=== PATIENT | female | born 1985 ===

== ENCOUNTER 2018-03-03 10:27 | Emergency (ER) | payer MEDICAID ==
[2018-03-03 10:32] VITALS: BMI 20.5
--- NOTE | 2018-03-03 11:14 | ED PDOC ---
Lower Extremity Pain/Injury Time Seen by Provider: 03/03/18 10:38 Chief Complaint (Nursing): Lower Extremity Problem/Injury Chief Complaint (Provider): Foot pain History Per: Patient Additional Complaint(s): 32 yo female, PMH includes, HIV, HTN, Systolic CHF, Migraine, Depression, presents to ED for evaluation of right foot pain. Pt reports that she walked into a box and stubbed her right 2nd toe. Pain into foot upon ambulation. No abrasion/laceration noted. No medications taken for pain thus far. Past Medical History Reviewed: Nursing Documentation, Vital Signs Vital Signs: Last Vital Signs Temp 98.6 F 03/03/18 10:31 Pulse 85 03/03/18 10:31 Resp 16 03/03/18 10:31 BP 171/103 H 03/03/18 10:31 Pulse Ox 99 03/03/18 10:31 - Medical History PMH: Anemia, CHF, Depression, HIV, HTN, Pneumonia, End Stage Renal Disease ( Dialysis M/W/F), Chronic Kidney Disease, Sexually Transmitted Disease Denies: Schizophrenia - Surgical History Surgical History: Denies: CABG - Family History Family History: States: Unknown Family Hx, Hypertension - Living Arrangements Living Arrangements: With Family - Social History Current smoker - smoking cessation education provided: No - Home Medications Home Medications: Ambulatory Orders Medication Instructions Recorded Darunavir [Prezista] 800 mg PO DAILY 08/11/16 amLODIPine [Norvasc] 10 mg PO DAILY 08/17/16 Dolutegravir Sodium [Tivicay] 50 mg PO DAILY 10/05/16 Losartan [Cozaar] 100 mg PO DAILY 10/05/16 Ritonavir [Norvir] 100 mg PO DAILY 10/05/16 Omeprazole 20 mg PO DAILY #30 capsule. 07/03/17 Albuterol HFA [Ventolin HFA 90 2 puff IH Q6H PRN 07/10/17 mcg/actuation (8 g)] Atovaquone [Mepron] 10 ml PO DAILY 07/10/17 Ferrous Sulfate [Ferrous Sulfate] 325 mg PO BID 07/10/17 Ketoconazole 2% Shampoo [Nizoral] 1 appl TOP MOFR 07/10/17 Azithromycin [Zithromax] 1,200 mg PO QWK #4 tab 07/18/17 Cefuroxime Axetil [Cefuroxime] 250 mg PO DAILY #7 tablet 07/18/17 valACYclovir [Valtrex] 500 mg PO DAILY #10 tab 07/18/17 Ibuprofen [Motrin] 600 mg PO Q6 #20 tab 03/03/18 - Allergies Allergies/Adverse Reactions: Allergies Allergy/AdvReac Type Severity Reaction Status Date / Time No Known Allergies Allergy Verified 07/03/17 13:53 Review of Systems ROS Statement: Except As Marked, All Systems Reviewed And Found Negative Musculoskeletal: Positive for: Foot Pain Physical Exam - Reviewed Nursing Documentation Reviewed: Yes Vital Signs Reviewed: Yes - Physical Exam Appears: Positive for: Well, Non-toxic, No Acute Distress Head Exam: Positive for: ATRAUMATIC, NORMAL INSPECTION, NORMOCEPHALIC Skin: Positive for: Normal Color, Warm, DRY Eye Exam: Positive for: EOMI, Normal appearance, PERRL ENT: Positive for: Normal ENT Inspection Neck: Positive for: Normal, Painless ROM Cardiovascular/Chest: Positive for: Regular Rate, Rhythm Respiratory: Positive for: CNT, Normal Breath Sounds Gastrointestinal/Abdominal: Positive for: Normal Exam, Soft Back: Positive for: Normal Inspection Extremity: Positive for: Normal ROM, Tenderness (to base of 2nd digit). Negative for: Deformity, Swelling Neurologic/Psych: Positive for: Alert, Oriented - ECG O2 Sat by Pulse Oximetry: 99 Medical Decision Making Medical Decision Making: medicated with Motrin PO XR: NAD, as read by KARMEN Pt placed in surgical marilynn for comfort. RICE therapy advised and podiatry referral made Disposition - Clinical Impression Clinical Impression: Foot pain - Disposition Disposition: Routine/Home Disposition Time: 13:00 Condition: STABLE Prescriptions: Ibuprofen [Motrin] 600 mg PO Q6 #20 tab Instructions: Contusion (DC) Forms: [employer] (Divehi)
--- NOTE | 2018-03-03 11:42 | RAD ---
Date of service: 03/03/2018 PROCEDURE: Right Foot Radiographs. HISTORY: paind, crush injury COMPARISON: None. FINDINGS: BONES: No acute fracture. JOINTS: Normal. SOFT TISSUES: Normal. OTHER FINDINGS: None. IMPRESSION: No demonstrated fracture or dislocation.
--- NOTE | 2018-03-03 11:42 | RAD ---
Date of service: 03/03/2018 PROCEDURE: Left Foot Radiographs. HISTORY: pain /swelling. dropped box on her foot COMPARISON: None. FINDINGS: BONES: No acute fracture. JOINTS: Normal. SOFT TISSUES: Normal. OTHER FINDINGS: None. IMPRESSION: No demonstrated fracture or dislocation.
[2018-03-03 12:55] VITALS: BP 128/76; PULSE 87; RESP 19; TEMP 97
[2018-03-03 13:00] VITALS: O2SAT 99
== END 2018-03-03 12:56 | disposition home or self-care (01) ==
LOC: H.ER 10:27
DX: S99.921A Unspecified injury of right foot, initial encounter (principal); W22.09XA Striking against other stationary object, initial encounter

== ENCOUNTER 2018-10-02 16:44 | Observation (INO) | payer MEDICAID ==
[2018-10-02 16:44] VITALS: BMI 20.5
[2018-10-02] MEDS ORDERED: Sodium Chloride 0.9% 1,000 ML IV ONE (18:59)
--- NOTE | 2018-10-02 19:00 | ED PDOC ---
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 Her last dialysis date was yesterday) Past Medical History Reviewed: Historical Data, Nursing Documentation, Vital Signs Vital Signs: Last Vital Signs Temp 98.7 F 10/02/18 17:10 Pulse 106 H 10/02/18 17:10 Resp 16 10/02/18 17:10 BP 185/109 H 10/02/18 17:10 Pulse Ox 100 10/02/18 17:10 - Medical History PMH: Anemia, CHF, Depression, HIV, HTN, Pneumonia, End Stage Renal Disease (Dialysis M/W/F), Chronic Kidney Disease, Sexually Transmitted Disease Denies: Schizophrenia - Surgical History Surgical History: Denies: CABG - Family History Family History: States: Unknown Family Hx, Hypertension - Home Medications Home Medications: Ambulatory Orders Medication Instructions Recorded Darunavir [Prezista] 800 mg PO DAILY 08/11/16 amLODIPine [Norvasc] 10 mg PO DAILY 08/17/16 Dolutegravir Sodium [Tivicay] 50 mg PO DAILY 10/05/16 Losartan [Cozaar] 100 mg PO DAILY 10/05/16 Ritonavir [Norvir] 100 mg PO DAILY 10/05/16 Omeprazole 20 mg PO DAILY #30 capsule. 07/03/17 Albuterol HFA [Ventolin HFA 90 2 puff IH Q6H PRN 07/10/17 mcg/actuation (8 g)] Atovaquone [Mepron] 10 ml PO DAILY 07/10/17 Ferrous Sulfate 325 mg PO BID 07/10/17 Ketoconazole 2% Shampoo [Nizoral] 1 appl TOP MOFR 07/10/17 Azithromycin [Zithromax] 1,200 mg PO QWK #4 tab 07/18/17 Cefuroxime Axetil [Cefuroxime] 250 mg PO DAILY #7 tablet 07/18/17 valACYclovir [Valtrex] 500 mg PO DAILY #10 tab 07/18/17 Ibuprofen [Motrin] 600 mg PO Q6 #20 tab 03/03/18 - Allergies Allergies/Adverse Reactions: Allergies Allergy/AdvReac Type Severity Reaction Status Date / Time No Known Allergies Allergy Verified 10/02/18 17:10 Review of Systems ROS Statement: Except As Marked, All Systems Reviewed And Found Negative ENT: Positive for: Ear Pain Neurological: Positive for: Headache Physical Exam - Reviewed Nursing Documentation Reviewed: Yes Vital Signs Reviewed: Yes - Physical Exam Appears: Positive for: Well, Uncomfortable Head Exam: Positive for: ATRAUMATIC, NORMAL INSPECTION ENT: Positive for: Other. Negative for: Normal ENT Inspection (Pt right mastoid is tender to palpation and the patient has an open rash on her right ear that she indicates is chronic) Neck: Positive for: Normal, Supple. Negative for: Limited ROM Cardiovascular/Chest: Positive for: Regular Rate, Rhythm Respiratory: Positive for: Normal Breath Sounds Pulses-Carotid (L): 2+ Pulses-Carotid (R): 2+ Pulses-Radial (L): 2+ Pulses-Radial (R): 2+ - Laboratory Results Result Diagrams: 10/02/18 19:51 10/02/18 19:51 - ECG O2 Sat by Pulse Oximetry: 100 Medical Decision Making Medical Decision Making: R/O Mastoiditis CBC CMP CT ICA without contrast ordered due to ESRF Percocet 5mg given for pain manament and effective 2000 - Pt care discussed and signed over to Jerica Disposition - Clinical Impression Clinical Impression: Mastoid pain - Patient ED Disposition Is Patient to be Admitted: Transfer of Care - Disposition Disposition: Transfer of Care Disposition Time: 20:15 Condition: STABLE Forms: [employer] (Lao)
[2018-10-02] MEDS ORDERED: Oxycodone/Acetaminophen 5/325 mg Tab PO STA (19:02)
[2018-10-02] MEDS ORDERED: Oxycodone/Acetaminophen 5/325 mg Tab ONE (19:15)
[2018-10-02 19:55] LABS: BASO % 0.7 % (0.0-2.0); EOS % 1.7 % (0.0-4.0); HEMOGLOBIN 9.8 g/dL (12.0-16.0); LYMPH # 0.7 K/uL (1.0-4.3); LYMPH % 31.1 % (20.0-40.0); MEAN CELL VOLUME 90.5 fl (81.0-99.0); MEAN CORPUSCULAR HGB CONC 33.1 g/dL (33.0-37.0); MEAN PLATELET VOLUME 8.6 fl (7.2-11.7); MONO # 0.2 K/uL (0.0-0.8); MONO % 9.9 % (0.0-10.0); NEUT # 1.3 K/uL (1.8-7.0); NEUT % 56.6 % (50.0-75.0); NRBC % 0.1 % (0.0-0.0); RBC 3.29 Mil/uL (3.80-5.20); RED CELL DISTRIBUTION WIDTH 18.4 % (11.5-14.5); WHITE BLOOD COUNT 2.3 K/uL (4.8-10.8)
[2018-10-02 20:09] LABS: ALB/GLOB RATIO 0.7 (1.0-2.1); ALBUMIN 3.3 g/dL (3.5-5.0); CALCIUM 9.7 mg/dL (8.4-10.2)
[2018-10-02] MEDS ORDERED: Oxycodone/Acetaminophen 5/325 mg Tab PO ONE (20:55)
--- NOTE | 2018-10-02 21:15 | ED PDOC ---
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 Associated headache x 3 days. HD MWF CLINICAL INFORMATION AVAILABLE/CLINICAL HISTORY: Right ear pain. TECHNIQUE: Helically acquired noncontrast images were obtained through the temporal bones in axial plane. Coronal, sagittal and 3-D images when reviewed on a separate workstation and selected images are saved in PACS. COMPARISON: None available. FINDINGS: Evaluation of the right temporal bone demonstrates circumferential soft tissue wall thickening of the external auditory canal with resultant luminal narrowing. No erosions are seen along the bony west of the external auditory canal. There are inflammatory changes in the surrounding soft tissues including the periauricular region. The right tympanic membrane is mildly thickened and retracted. There is partial opacification of the right middle ear cavity, including Prussak's space. The scutum is sharp. The ossicles demonstrate no abnormal erosion and are normal in position. The sinus tympani and facial nerve recess are opacified. The inner ear cavity demonstrates a normal partitioning of the cochlea and vestibular apparatus. The facial nerve canal is normal. The internal auditory canal is unremarkable in shape and configuration. The vestibular and cochlear aqueducts are normal in appearance. The carotid and jugular bony canals are unremarkable. The osseous covering of the superior and lateral semicircular canals, cochlear promontory, facial nerve canal, and the tegmen tympani are intact.There is opacification of several posterior mastoid air cells as well as trace fluid in the right mastoid tip. Remainder of the mastoid air cells are well aerated. There are no bony erosions or trabecular breakdown to suggest coalescence. The adjacent sigmoid plate is intact. Evaluation of the left temporal bone demonstrates a normal appearance to the left external auditory canal. The tympanic membrane is unremarkable. The left middle ear cavity is well aerated and the ossicles demonstrate no abnormal erosion and are normal in position. The sinus tympani and facial nerve recess appear normal. The inner ear cavity demonstrates a normal partitioning of the cochlea and vestibular apparatus. The facial nerve canal is normal. The internal auditory canal is unremarkable in shape and configuration. The vestibular and cochlear aqueducts are normal in appearance. The carotid and jugular bony canals are unremarkable. There is mild bony thinning of the osseous covering of the left superior semicircular canal without evidence for kaylah dehiscence. The osseous covering of the lateral semicircular canal, cochlear promontory, facial nerve canal, and the tegmen tympani are intact. Trace fluid is noted within the left mastoid tip. The visualized portions of the intracranial and intraorbital compartments demonstrate no abnormality. The visualized portion of the nasopharynx is unremarkable. Polyploid mucosal thickening is noted within both maxillary sinuses. There is trace mucosal thickening in the right sphenoid sinus, anterior ethmoid air cells, and right greater than left frontal recesses. The visualized right parotid gland appears asymmetrically enlarged when compared to the left. Several punctate calcifications are seen within both parotid glands. There is no acute fracture or dislocation. The TMJs are within normal limits. IMPRESSION: 1. Opacification of several right-sided mastoid air cells and partial opacification of the right middle ear cavity. Findings are suggestive of otomastoiditis. No associated bony erosions or evidence for coalescence. 2. Circumferential wall thickening of the right external auditory canal with resultant luminal narrowing. Inflammatory changes are seen in the adjacent periauricular soft tissues. This may represent otitis externa in the appropriate clinical setting. 3. Asymmetric enlargement of the right parotid gland may be reactive in nature secondary to adjacent inflammatory changes. Punctate sialoliths are present within both parotid glands. 4. Trace fluid within the left mastoid tip. 5. Pansinus mucosal disease Case discussed with Dr. León, ENT on-call; recommends admission for IV abx with ID consult, MRI of mastoids, bone scan of mastoids. Case discussed with Dr. Rogers, recommends stat doses of IV Tobramycin 80mg, IV Meropenem 500mg, IV Zosyn 2.25G, IV Vanco 1G Case discussed with Dr. Osorio, Hospitalist on-call for admission Disposition - Clinical Impression Clinical Impression: Malignant otitis externa, ESRD (end stage renal disease) - POA Present On Arrival: None - Disposition Disposition: Admitted as In-Patient Disposition Time: 23:00 Condition: FAIR
[2018-10-02] MEDS ORDERED: Meropenem 500 MG in Sodium Chloride 0.9% 100 ML IVPB STA (23:05)
[2018-10-02] MEDS ORDERED: Vancomycin 1 g Inj ONE (23:33)
--- NOTE | 2018-10-03 01:33 | CP.PCM.HP ---
<Alejandro Godinez - Last Filed: 10/03/18 05:12> History of Present Illness - History of Present Illness History of Present Illness: Pt is a 33 y/o female with hx of Dilated cardiomyopathy, pulmonary HTN, HIV, Dilated Cardiomyopathy, ESRD on HD (MWF), presents with ear pain and headache. States 1 week ago she noticed a painful rash on her ear that began draining clear yellow fluid. Than 3 days ago she started have throbbing headaches. Had 1 episodes of vomiting this morning. Denies fever/chills, blurry vision, neck rigidity, cough, cp, sob. Last received dialysis yesterday. PMD: Akira Leiva PMHX: HIV (compliant with HAART therapy,last CD4 215, viral load 100 on 08/29/18), Dilated Cardiomyopathy (Last EF 25%), HTN, ESRD on HD (MWF), Pancytopenia Medications: Dolutegravir, Prezista, Norvir, atovaquone, norvasc 10mg, coreg 25 mg, Irbesartan 300mg, Valacylovir 1gm daily, Feosol, Wellbutrin 150 ER, Sertraline 100mg 1.5 tab daily, Albuterol PRN SHx: AVF Left arm, fat pad biopsy-right flank 03/30/2017 - negative for amyloidosis, US guided liver biopsy 10/20/2016, Right hepatic lobe biopsy 10/20/2016, LEEP and vulvar biopsy 04/2015, Right arm AVF fistula: 11/2014. Family Hx: Father: DM, HTN, 2 children, healthy, siblings healthy. Social Hx: denies tobacco, etoh, illicit drug use Present on Admission - Present on Admission Any Indicators Present on Admission: No Past Patient History - Infectious Disease Hx of Infectious Diseases: None - Tetanus Immunizations Tetanus Immunization: Up to Date - Past Medical History & Family History Past Medical History?: Yes - Past Social History Smoking Status: Never Smoked - CARDIAC Hx Congestive Heart Failure: Yes Hx Hypertension: Yes - PULMONARY Hx Pneumonia: Yes - NEUROLOGICAL Hx Neurological Disorder: No - HEENT Hx HEENT Problems: No - RENAL Hx Chronic Kidney Disease: Yes - ENDOCRINE/METABOLIC Hx Endocrine Disorders: No - HEMATOLOGICAL/ONCOLOGICAL Hx Anemia: Yes Hx Human Immunodeficiency Virus (HIV): Yes - INTEGUMENTARY Hx Dermatological Problems: No - MUSCULOSKELETAL/RHEUMATOLOGICAL Hx Falls: No - GASTROINTESTINAL Hx Gastrointestinal Disorders: No - GENITOURINARY/GYNECOLOGICAL Hx Sexually Transmitted Disorders: Yes - PSYCHIATRIC Hx Depression: Yes Hx Schizophrenia: No - SURGICAL HISTORY Hx Coronary Artery Bypass Graft: No - ANESTHESIA Hx Anesthesia: Yes Hx Anesthesia Reactions: No Hx Malignant Hyperthermia: No Meds Allergies/Adverse Reactions: Allergies Allergy/AdvReac Type Severity Reaction Status Date / Time No Known Allergies Allergy Verified 10/02/18 17:10 Physical Exam - Constitutional Appears: No Acute Distress, Older Than Stated Age - Eye Exam Eye Exam: EOMI, Normal appearance, PERRL. absent: Conjunctival injection, Nystagmus, Periorbital swelling, Periorbital tenderness, Scleral icterus - ENT Exam ENT Exam: Mucous Membranes Moist Additional comments: Right ear- Scattered erythematous and edematous areas along the pinna, external ear canal yellow crusting lesions, no visible drainage, exquisitely tender to palpation marked in auditory canal and regions surrounding ear extending from mastoid to mandibular. No vesicular lesions. - Neck Exam Neck exam: Positive for: Full Rom. Negative for: Meningismus - Respiratory Exam Respiratory Exam: Clear to Auscultation Bilateral. absent: Rales, Wheezes - Cardiovascular Exam Cardiovascular Exam: REGULAR RHYTHM, +S1, +S2. absent: Systolic Murmur - GI/Abdominal Exam GI & Abdominal Exam: Normal Bowel Sounds, Soft. absent: Tenderness - Extremities Exam Extremities exam: Positive for: normal inspection - Back Exam Back exam: NORMAL INSPECTION - Neurological Exam Neurological exam: Alert, Oriented x3 - Psychiatric Exam Psychiatric exam: Normal Affect Results - Vital Signs Recent Vital Signs: Last Vital Signs Temp 98.4 F 10/02/18 22:49 Pulse 106 H 10/02/18 22:49 Resp 16 10/02/18 22:49 BP 146/105 H 10/02/18 22:49 Pulse Ox 100 10/02/18 23:44 - Labs Result Diagrams: 10/02/18 19:51 10/02/18 19:51 Labs: Laboratory Results - last 24 hr 10/02/18 10/02/18 19:51 19:51 WBC 2.3 L RBC 3.29 L Hgb 9.8 L D Hct 29.7 L MCV 90.5 D MCH 30.0 MCHC 33.1 RDW 18.4 H Plt Count 65 L D MPV 8.6 Neut % (Auto) 56.6 Lymph % (Auto) 31.1 Kleberg % (Auto) 9.9 Eos % (Auto) 1.7 Baso % (Auto) 0.7 Neut # (Auto) 1.3 L Lymph # (Auto) 0.7 L Kleberg # (Auto) 0.2 Eos # (Auto) 0.0 Baso # (Auto) 0.0 Sodium 141 Potassium 5.0 Chloride 102 Carbon Dioxide 27 Anion Gap 17 BUN 33 H Creatinine 6.5 H Est GFR ( Amer) 9 Est GFR (Non-Af Amer) 7 Random Glucose 85 Calcium 9.7 Total Bilirubin 0.6 AST 43 H D ALT 52 D Alkaline Phosphatase 97 Total Protein 8.1 Albumin 3.3 L D Globulin 4.8 H Albumin/Globulin Ratio 0.7 L Assessment & Plan - Assessment and Plan (Free Text) Assessment: Pt is a 33 y/o female with hx of Dilated cardiomyopathy, pulmonary HTN, Chronic Pancytopenia, HIV, HTN, ESRD on HD (MWF), presents with ear pain associated with yellow drainage and headache. #Right Ear Pain & Drainage - Facial Bone CT: Opacification of right mastoid air cells and middle ear cavity suggestive of Otomastoiditis. Circumferential wall thickening of external ear canal..may represent Otitis External - Need to rule out malignant Otitis Externa - IAC w/ contrast MRI ordered - Afebrile, Tachycardic, Leukopenic 2.3 - ENT consulted (Dr. León): recommended MRI Mastoi, Bone Scan Mastoid - ID Consulted (Dr. Rogers): Recommended STAT doses of Vanco, Zosyn, Merrem, And Tobramycin - Will c/w Zosyn and Merrem for dual pseudomonas coverage and await further recommendations from ID regarding additional abx coverage - Wound Care for external ear canal - F/U Bcx, Wcx, ESR, CBC, Vanco random at 24 hrs after first dose #ESRD on HD MWF -HD MWF -Nephro logy consulted, Dr. Henley #HIV - compliant with HAART therapy - Last CD4 215, viral load 100 on 08/29/18 - Was getting pcp ppx with Atovaquinone bu latest viral load shows she may not need it - Follows Dr. Morales in [facility] #Cardiomyopathy, dilated, nonischemic, stable -Euvolemic on exam, no jvd, lungs clear, no LE Edema, POSITIVE systolic murmur (chronic) -Sees Dr. Cline OP -last echo (03/23), EF 25% -Monitor volume status daily, avoid fluid overload #Pancytopenia, chronic -Stable at 2.3 on admission (baseline ranges form 2-3) -Likely 2/2 to HIV -Evaluated by Director Heart,Dr. Larsen in prior admission- Pancytopenia likely 2/2 to HIV -F/U CBC #Transaminitits, chronic, mild -Hepatomegaly noted on repeat abdominal CT (07/13) -Likely secondary to Congestive hepatopathy -Hepatitis serology negative -Avoid hepatotoxic meds #HTN -Normotensive -C/W Norvasc and Ibesartan (NF,will start equivocal med) -Continue to monitor #DVT prophylaxis -Heparin #Diet -Renal <Merrill Erazo - Last Filed: 10/03/18 06:52> Results - Vital Signs Recent Vital Signs: Last Vital Signs Temp 97.8 F 10/03/18 06:20 Pulse 92 H 10/03/18 06:20 Resp 19 10/03/18 06:20 BP 176/98 H 10/03/18 06:20 Pulse Ox 98 10/03/18 06:20 - Labs Result Diagrams: 10/03/18 05:30 10/03/18 05:30 Labs: Laboratory Results - last 24 hr 10/02/18 10/02/18 10/03/18 19:51 19:51 05:30 WBC 2.3 L 2.0 L* RBC 3.29 L 3.04 L Hgb 9.8 L D 9.1 L Hct 29.7 L 28.0 L MCV 90.5 D 92.2 MCH 30.0 30.0 MCHC 33.1 32.5 L RDW 18.4 H 18.1 H Plt Count 65 L D 65 L MPV 8.6 Neut % (Auto) 56.6 Lymph % (Auto) 31.1 Kleberg % (Auto) 9.9 Eos % (Auto) 1.7 Baso % (Auto) 0.7 Neut # (Auto) 1.3 L Lymph # (Auto) 0.7 L Kleberg # (Auto) 0.2 Eos # (Auto) 0.0 Baso # (Auto) 0.0 Sodium 141 Potassium 5.0 Chloride 102 Carbon Dioxide 27 Anion Gap 17 BUN 33 H Creatinine 6.5 H Est GFR ( Amer) 9 Est GFR (Non-Af Amer) 7 Random Glucose 85 Lactic Acid Calcium 9.7 Phosphorus Magnesium Total Bilirubin 0.6 AST 43 H D ALT 52 D Alkaline Phosphatase 97 Total Protein 8.1 Albumin 3.3 L D Globulin 4.8 H Albumin/Globulin Ratio 0.7 L 10/03/18 10/03/18 05:30 05:30 WBC RBC Hgb Hct MCV MCH MCHC RDW Plt Count MPV Neut % (Auto) Lymph % (Auto) Kleberg % (Auto) Eos % (Auto) Baso % (Auto) Neut # (Auto) Lymph # (Auto) Kleberg # (Auto) Eos # (Auto) Baso # (Auto) Sodium 141 Potassium 5.5 H Chloride 101 Carbon Dioxide 27 Anion Gap 19 BUN 34 H Creatinine 7.4 H* Est GFR ( Amer) 8 Est GFR (Non-Af Amer) 6 Random Glucose 78 Lactic Acid 0.6 L Calcium 9.3 Phosphorus 6.0 H Magnesium 2.3 Total Bilirubin 0.7 AST 38 H ALT 50 Alkaline Phosphatase 90 Total Protein 7.8 Albumin 3.5 Globulin 4.3 H Albumin/Globulin Ratio 0.8 L Assessment & Plan - Assessment and Plan (Free Text) Plan: History as documented by resident was reviewed with patient and resident. I personally performed the mcintyre elements of physical exam and agree with the above findings. Diagnostics reviewed. X-ray and EKG as above interpreted by me. Medical decision making and plan of care performed by me. 33 yo F with hx of HIV/AIDS, HTN, ESRD on HD (MWF) p/w right ear pain and discharge. Pain started in her ear; however, got progressively worse and is now having a lot of pain in the surrounding area from mastoid to maxilla. On exam right ear is swollen, erythematous and exquisitely tender with some pus in the ear canal. Blood work remarkable for mild pancytopenia and elevated BUN/Cr consistent with her personal hx of ESRD. Last CD4 count in was 177. Claims to be compliant with HAART. CT showed otitis externa and possible otomastoiditis. My impression is sepsis (tachycardia and low WBC) possibly due to malignant otitis externa (Pseudomona infection)). ENT on board and recommended MRI. ID on board assisting antibiotic therapy. Their input appreciated. Will follow recommendations. Will consult renal as she is due for her HD today. Prognosis guarded.
[2018-10-03] MEDS ORDERED: Oxycodone/Acetaminophen 5/325 mg Tab PO PRN ×2 (02:53→03:00)
[2018-10-03] MEDS ORDERED: Albuterol HFA 90 mcg/actuation (8 g) IH PRN (03:03)
[2018-10-03 05:48] LABS: HEMOGLOBIN 9.1 g/dL (12.0-16.0); MEAN CELL VOLUME 92.2 fl (81.0-99.0); MEAN CORPUSCULAR HGB CONC 32.5 g/dL (33.0-37.0); RBC 3.04 Mil/uL (3.80-5.20); RED CELL DISTRIBUTION WIDTH 18.1 % (11.5-14.5)
[2018-10-03 06:13] LABS: ALB/GLOB RATIO 0.8 (1.0-2.1); ALBUMIN 3.5 g/dL (3.5-5.0); CALCIUM 9.3 mg/dL (8.4-10.2)
--- NOTE | 2018-10-03 08:53 | RAD ---
Date of service: 10/02/2018 HISTORY: admit COMPARISON: 07/11/2017 FINDINGS: LUNGS: No interval consolidation. Left hemidiaphragm asymmetrically elevated accentuated on this exam PLEURA: No significant pleural effusion identified, no pneumothorax apparent. CARDIOVASCULAR: No aortic atherosclerotic calcification present. Cardiomegaly-similar venous mild pulmonary vascular congestion suspect similar to prior appearance OSSEOUS STRUCTURES: No significant abnormalities. VISUALIZED UPPER ABDOMEN: Normal. OTHER FINDINGS: None. IMPRESSION: No interval consolidation. Mild cardiomegaly and mild pulmonary vascular congestion suspect-similar appearance to the 07/11/2017.
--- NOTE | 2018-10-03 09:42 | CARD ---
APPROVED REPORT Date of service: 10/03/2018 EKG Measurement Heart [id number] <Conclusion> Normal sinus rhythm Normal Electrocardiogram
--- NOTE | 2018-10-03 09:57 | CP.PCM.CON ---
History of Present Illness - History of Present Illness History of Present Illness: This patient who is 33 years of age female known to me with end-stage renal disease on maintenance hemodialysis Monday. She presented to the emergency room with a pain in the right ear and drainage occasional headache and the history from the medical record as follow Pt is a 33 y/o female with hx of Dilated cardiomyopathy, pulmonary HTN, HIV, Dilated Cardiomyopathy, ESRD on HD (MWF), presents with ear pain and headache. States 1 week ago she noticed a painful rash on her ear that began draining clear yellow fluid. Than 3 days ago she started have throbbing headaches. Had 1 episodes of vomiting this morning. Denies fever/chills, blurry vision, neck rigidity, cough, cp, sob. Last received dialysis yesterday. Also patient has persistent hyperphosphatemia for the most part and secondary hyperparathyroidism PMHX: HIV (compliant with HAART therapy,last CD4 215, viral load 100 on 08/29/18), Dilated Cardiomyopathy (Last EF 25%), HTN, ESRD on HD (MWF), Pancytopenia Medications: Dolutegravir, Prezista, Norvir, atovaquone, norvasc 10mg, coreg 25 mg, Irbesartan 300mg, Valacylovir 1gm daily, Feosol, Wellbutrin 150 ER, Sertraline 100mg 1.5 tab daily, Albuterol PRN SHx: AVF Left arm, fat pad biopsy-right flank 03/30/2017 - negative for amyloidosis, US guided liver biopsy 10/20/2016, Right hepatic lobe biopsy 10/05, LEEP and vulvar biopsy 04/2015, Right arm AVF fistula: 11/2014. Family Hx: Father: DM, HTN, 2 children, healthy, siblings healthy. Social Hx: denies tobacco, etoh, illicit drug use Review of Systems - Constitutional Constitutional: Anorexia, Weakness. absent: Chills - EENT Ears: As Per HPI, Ear Discharge Nose/Mouth/Throat: absent: Nasal Discharge - Cardiovascular Cardiovascular: absent: Chest Pain, Diaphoresis, Edema - Respiratory Respiratory: absent: Cough, Dyspnea, Chest Congestion - Gastrointestinal Gastrointestinal: absent: Abdominal Pain, Coffee Ground Emesis, Melena - Musculoskeletal Musculoskeletal: Muscle Weakness. absent: Abnormal Gait, Myalgias, Numbness Past Patient History - Infectious Disease Hx of Infectious Diseases: None - Tetanus Immunizations Tetanus Immunization: Up to Date - Past Medical History & Family History Past Medical History?: Yes - Past Social History Smoking Status: Never Smoked - CARDIAC Hx Cardiac Disorders: Yes Hx Congestive Heart Failure: Yes Hx Hypertension: Yes - PULMONARY Hx Respiratory Disorders: Yes Hx Asthma: Yes Hx Pneumonia: Yes - NEUROLOGICAL Hx Neurological Disorder: No - HEENT Hx HEENT Problems: Yes Other/Comment: eyeglasses - RENAL Hx Chronic Kidney Disease: Yes Hx Dialysis: Yes Type of Dialysis Access: HD Date of Last Dialysis Treatment: 10/01/18 - ENDOCRINE/METABOLIC Hx Endocrine Disorders: No Hx Diabetes Mellitus Type 2: No - HEMATOLOGICAL/ONCOLOGICAL Hx Blood Disorders: Yes Hx Human Immunodeficiency Virus (HIV): Yes - INTEGUMENTARY Hx Dermatological Problems: No - MUSCULOSKELETAL/RHEUMATOLOGICAL Hx Musculoskeletal Disorders: Yes Hx Falls: Yes - GASTROINTESTINAL Hx Gastrointestinal Disorders: No - GENITOURINARY/GYNECOLOGICAL Hx Genitourinary Disorders: No Hx Sexually Transmitted Disorders: No (denies hx) - PSYCHIATRIC Hx Psychophysiologic Disorder: No Hx Substance Use: No - SURGICAL HISTORY Hx Surgeries: Yes Hx Section: Yes Hx Coronary Artery Bypass Graft: No Hx Vascular Access Device: Yes (R AV shunt) - ANESTHESIA Hx Anesthesia: Yes Hx Anesthesia Reactions: No Hx Malignant Hyperthermia: No Meds Allergies/Adverse Reactions: Allergies Allergy/AdvReac Type Severity Reaction Status Date / Time No Known Allergies Allergy Verified 10/02/18 17:10 - Medications Medications: Current Medications Acetaminophen (Tylenol 325mg Tab) 650 mg PO Q6 PRN PRN Reason: Pain, Mild (1-3) Albuterol (Ventolin Hfa 90 Mcg/Actuation (8 G)) 2 puff IH Q6H PRN PRN Reason: Shortness of Breath Amlodipine Besylate (Norvasc) 10 mg PO DAILY [facility] Last Admin: 10/03/18 07:00 Dose: 10 mg Carvedilol (Coreg) 25 mg PO DAILY [facility] Last Admin: 10/03/18 06:59 Dose: 25 mg Ciprofloxacin/Dexamethasone (Ciprodex Otic) 4 drop AD BID [facility] Darunavir (Prezista) 800 mg PO DAILY [facility]; Protocol Dolutegravir Sodium (Tivicay) 50 mg PO DAILY [facility]; Protocol Famotidine (Pepcid) 20 mg PO BID [facility] Piperacillin Sod/Tazobactam (Sod 2.25 gm/ Sodium Chloride) 100 mls @ 100 mls/hr IVPB Q8 [facility]; Protocol Meropenem 500 mg/ Sodium (Chloride) 100 mls @ 100 mls/hr IVPB Q24H [facility]; Protoc ol Losartan Potassium (Cozaar) 100 mg PO DAILY [facility] Ondansetron HCl (Zofran Inj) 4 mg IVP Q6 PRN PRN Reason: Nausea/Vomiting Oxycodone/Acetaminophen (Percocet 5/325 Mg Tab) 1 tab PO Q4 PRN PRN Reason: Pain, moderate (4-7) Stop: 10/06/18 02:54 Oxycodone/Acetaminophen (Percocet 5/325 Mg Tab) 2 tab PO Q6 PRN PRN Reason: Pain, severe (8-10) Stop: 10/06/18 03:01 Ritonavir (Norvir) 100 mg PO DAILY [facility] Physical Exam - Constitutional Appears: No Acute Distress - Eye Exam Eye Exam: Conjunctival injection - ENT Exam ENT Exam: Mucous Membranes Moist - Neck Exam Neck exam: Positive for: Lymphadenopathy - Respiratory Exam Respiratory Exam: NORMAL BREATHING PATTERN. absent: Chest Wall Tenderness, Rhonchi - Cardiovascular Exam Cardiovascular Exam: REGULAR RHYTHM. absent: Gallop, JVD, Rubs - GI/Abdominal Exam GI & Abdominal Exam: Normal Bowel Sounds. absent: Guarding, Organomegaly - Extremities Exam Extremities exam: Negative for: calf tenderness - Back Exam Back exam: absent: CVA tenderness (L), CVA tenderness (R) - Neurological Exam Neurological exam: Alert Results - Vital Signs Recent Vital Signs: Last Vital Signs Temp 97.7 F 10/03/18 08:03 Pulse 80 10/03/18 08:03 Resp 20 10/03/18 08:03 BP 146/82 10/03/18 08:03 Pulse Ox 100 10/03/18 08:03 - Labs Result Diagrams: 10/03/18 05:30 10/03/18 05:30 Labs: Laboratory Results - last 24 hr 10/02/18 10/02/18 10/03/18 19:51 19:51 05:30 WBC 2.3 L 2.0 L* RBC 3.29 L 3.04 L Hgb 9.8 L D 9.1 L Hct 29.7 L 28.0 L MCV 90.5 D 92.2 MCH 30.0 30.0 MCHC 33.1 32.5 L RDW 18.4 H 18.1 H Plt Count 65 L D 65 L MPV 8.6 Neut % (Auto) 56.6 Lymph % (Auto) 31.1 [place] % (Auto) 9.9 Eos % (Auto) 1.7 Baso % (Auto) 0.7 Neut # (Auto) 1.3 L Lymph # (Auto) 0.7 L [place] # (Auto) 0.2 Eos # (Auto) 0.0 Baso # (Auto) 0.0 ESR 75 H Sodium 141 Potassium 5.0 Chloride 102 Carbon Dioxide 27 Anion Gap 17 BUN 33 H Creatinine 6.5 H Est GFR ( Amer) 9 Est GFR (Non-Af Amer) 7 Random Glucose 85 Lactic Acid Calcium 9.7 Phosphorus Magnesium Total Bilirubin 0.6 AST 43 H D ALT 52 D Alkaline Phosphatase 97 Total Protein 8.1 Albumin 3.3 L D Globulin 4.8 H Albumin/Globulin Ratio 0.7 L 10/03/18 10/03/18 05:30 05:30 WBC RBC Hgb Hct MCV MCH MCHC RDW Plt Count MPV Neut % (Auto) Lymph % (Auto) [place] % (Auto) Eos % (Auto) Baso % (Auto) Neut # (Auto) Lymph # (Auto) [place] # (Auto) Eos # (Auto) Baso # (Auto) ESR Sodium 141 Potassium 5.5 H Chloride 101 Carbon Dioxide 27 Anion Gap 19 BUN 34 H Creatinine 7.4 H* Est GFR ( Amer) 8 Est GFR (Non-Af Amer) 6 Random Glucose 78 Lactic Acid 0.6 L Calcium 9.3 Phosphorus 6.0 H Magnesium 2.3 Total Bilirubin 0.7 AST 38 H ALT 50 Alkaline Phosphatase 90 Total Protein 7.8 Albumin 3.5 Globulin 4.3 H Albumin/Globulin Ratio 0.8 L Assessment & Plan (1) ESRD (end stage renal disease) Assessment and Plan: End-stage renal disease on hemodialysis Monday Right ear infection and cellulitis Pancytopenia Hyperphosphatemia Secondary hyperparathyroidism HIV Cardiomyopathy history Recommendation Hemodialysis scheduled for later on today. Order was given consent was taken. Discussed with the dialysis nurse Continue phosphorus binders Continue Sensipar Serum phosphorus and PTH Antibiotics as per primary team Status: Chronic Priority: High
--- NOTE | 2018-10-03 10:28 | CP.PCM.PN ---
Subjective - Date & Time of Evaluation Date of Evaluation: 10/03/18 Time of Evaluation: 10:25 - Subjective Subjective: I D CONSULT NOTE DISCUSSED c RESIDENT AND DR. KEITH HAVE ADDED ACYCLOVIR IN ADJUSTED DOSE Objective - Vital Signs/Intake and Output Vital Signs (last 24 hours): Temp Pulse Resp BP Pulse Ox 97.7 F 80 20 146/82 100 10/03/18 08:03 10/03/18 08:03 10/03/18 08:03 10/03/18 08:03 10/03/18 08:03 - Medications Medications: Current Medications Acetaminophen (Tylenol 325mg Tab) 650 mg PO Q6 PRN PRN Reason: Pain, Mild (1-3) Albuterol (Ventolin Hfa 90 Mcg/Actuation (8 G)) 2 puff IH Q6H PRN PRN Reason: Shortness of Breath Amlodipine Besylate (Norvasc) 10 mg PO DAILY [facility] Last Admin: 10/03/18 07:00 Dose: 10 mg Carvedilol (Coreg) 25 mg PO DAILY [facility] Last Admin: 10/03/18 06:59 Dose: 25 mg Cinacalcet (Sensipar) 30 mg PO DAILY [facility] Ciprofloxacin/Dexamethasone (Ciprodex Otic) 4 drop AD BID [facility] Darunavir (Prezista) 800 mg PO DAILY [facility]; Protocol Dolutegravir Sodium (Tivicay) 50 mg PO DAILY [facility]; Protocol Epoetin Vipul (Procrit) 8,000 unit IV MWF [facility] Famotidine (Pepcid) 20 mg PO BID [facility] Piperacillin Sod/Tazobactam (Sod 2.25 gm/ Sodium Chloride) 100 mls @ 100 mls/hr IVPB Q8 [facility]; Protocol Meropenem 500 mg/ Sodium (Chloride) 100 mls @ 100 mls/hr IVPB Q24H [facility]; Protocol Acyclovir 400 mg/ Sodium (Chloride) 100 mls @ 100 mls/hr IV DAILY [facility]; Protocol Losartan Potassium (Cozaar) 100 mg PO DAILY [facility] Ondansetron HCl (Zofran Inj) 4 mg IVP Q6 PRN PRN Reason: Nausea/Vomiting Oxycodone/Acetaminophen (Percocet 5/325 Mg Tab) 1 tab PO Q4 PRN PRN Reason: Pain, moderate (4-7) Stop: 10/06/18 02:54 Oxycodone/Acetaminophen (Percocet 5/325 Mg Tab) 2 tab PO Q6 PRN PRN Reason: Pain, severe (8-10) Stop: 10/06/18 03:01 Ritonavir (Norvir) 100 mg PO DAILY [facility] Sevelamer HCl (Renagel) 2,400 mg PO TID [facility] - Labs Labs: 10/03/18 05:30 10/03/18 05:30
[2018-10-03] MEDS: Ciprofloxacin/Dexamethasone OTIC SUSP AD SCH ×2 (10:52→16:43)
--- NOTE | 2018-10-03 11:36 | CT ---
Date of service: 10/02/2018 PROCEDURE: CT OF THE TEMPORAL BONES WITHOUT CONTRAST HISTORY: r/o mastoiditis COMPARISON: None available. TECHNIQUE: High resolution axial images of the temporal bones were obtained. Coronal and sagittal reformats were generated. Radiation dose: Total exam DLP = 564.2 mGy-cm. This CT exam was performed using one or more of the following dose reduction techniques: Automated exposure control, adjustment of the mA and/or kV according to patient size, and/or use of iterative reconstruction technique. FINDINGS: RIGHT TEMPORAL BONE: RIGHT MIDDLE EAR: Minimal soft tissue opacification in the right epitympanum contiguous with ossicles. Scutum is sharp without the erosion. Can be seen with early cholesteatoma and/or other inflammatory change. Ossicles here appear normal. Trace thickening of the right tympanic membrane and trace a retraction probable RIGHT INNER EAR: Cochlea: Normal. Semicircular canals: Normal. RIGHT MASTOID AIR CELLS: Several mastoid air cells are opacified-compatible with a mastoid effusion and/or mastoiditis. RIGHT INTERNAL AUDITORY CANAL: Normal. RIGHT EXTERNAL AUDITORY CANAL: Circumferential soft tissue wall thickening with resultant luminal narrowing. No bony wall erosions seen. These findings blend with the right periauricular soft tissues. Extensive inflammatory changes are inferred. Nearby reactive benign-appearing lymph node pre auricular is also probable RIGHT VESTIBULAR AND COCHLEAR AQUEDUCT: Normal. LEFT TEMPORAL BONE: LEFT MIDDLE EAR: Normal. LEFT INNER EAR: Cochlea: Normal. Semicircular canals: Normal. LEFT MASTOID AIR CELLS: Few were mastoid air cells are opacified tiny fluid levels are also present. Findings compatible with mastoid effusion and/or mastoiditis. Findings are less pronounced on the left than the right LEFT INTERNAL AUDITORY CANAL: Normal. LEFT EXTERNAL AUDITORY CANAL: Normal. LEFT VESTIBULAR AND COCHLEAR AQUEDUCTS: Normal. OTHER FINDINGS: Pansinusitis-polypoid type mucosal thickening of each maxillary sinus. Inflammatory changes of the ethmoidal air cells and few were inflammatory changes of the sphenoid air cell is also noted. Inflammatory changes on the sagittal reconstructions of the frontal air cells also noted. Few left parotid gland calcifications-can be seen with sialoliths-no gross dilated ducts apparent on this non IV contrast enhanced study. IMPRESSION: Bilateral mastoid air cell opacifications with fluid levels. Concomitant mild inflammatory changes in the right middle ear cavity. Findings compatible with otomastoiditis right side greater than left. No erosions seen. Continued follow-up recommended. Right external auditory canal circumferential soft tissue wall thickening with resultant luminal narrowing. No bony destruction seen. The soft tissue changes blend with the contiguous Angelika auricular soft tissues. Findings are compatible with a right otitis externa. No gas-forming cellulitis seen. Continued close follow-up is advised. Few left parotid gland calcifications-can be seen with sialoliths-no gross dilated ducts apparent on this non IV contrast enhanced study. Pansinusitis-underlying retention cyst and/or polyp suspect. Concordant results (preliminary interpretation) provided by [facility].
[2018-10-03] MEDS: Epoetin Alfa 20000 UNIT/ML (RENAL DOSE) IV SCH (16:40)
[2018-10-03] MEDS: Acyclovir 400 MG in Sodium Chloride 0.9% 100 ML IV SCH (16:40)
--- NOTE | 2018-10-03 17:13 | MRI ---
Date of service: 10/03/2018 PROCEDURE: MRI OF THE BRAIN AND INTERNAL AUDITORY CANALS WITHOUT CONTRAST. HISTORY: right ear pain/swelling/drainage COMPARISON: Unenhanced head CT 07/11/2017. Temporal bone CT 10/02/2018. TECHNIQUE: Multiplanar, multisequence MR images of the brain and posterior fossa were obtained without gadolinium contrast. High-resolution posterior fossa and images through the cerebellopontine angle and internal auditory canals included: Axial 3-D fiesta, axial T1 and coronal T1 weighted sequences. FINDINGS: Note is made of prominent edema along the soft tissues of the right external auditory canal with marked narrowing of the lumen compatible with otitis externa. Left external auditory canal is unremarkable appearing. IAC/CP ANGLE: INTERNAL AUDITORY CANAL: The bilateral internal auditory canals appear normal in development, caliber and contour. The 7th/8th cranial nerve complexes appear normal in intrinsic signal as well as course, caliber and contour. No mass is seen within the bilateral internal auditory canals or other suspicious contrast enhancement. Incidental views through the visualized brainstem and bilateral trigeminal nerves are also unremarkable. CEREBELLOPONTINE ANGLE: Unremarkable. INNER EAR STRUCTURES: Unremarkable. Normally formed cochlea and semicircular canals. No signal abnormality in the membranous labyrinth of the cochlea, vestibule or the semicircular canals. BRAINSTEM: Unremarkable. MASTOIDS: Mild bilateral mastoid effusions identified, right greater than left. Bilateral middle ear cavity inflammatory changes are better seen in prior CT noted above than current MRI though similar changes are present in the current study. BRAIN: HEMORRHAGE:: None DWI: No evidence of an acute or early subacute infarction. BRAIN (LIMITED): No mass effect or edema. PARANASAL SINUSES: Clear OTHER FINDINGS: None . IMPRESSION: 1. Right otitis externa reiterated without abscess. Right mastoid effusion reiterated with otitis media less well appreciated currently but proven in prior CT 10/02/2018. 2. Left mastoid effusion identified once again. Left otitis media better seen in prior CT than current MRI. 3. Normal IAC's bilaterally.
--- NOTE | 2018-10-03 18:02 | CP.PCM.PN ---
Subjective - Date & Time of Evaluation Date of Evaluation: 10/03/18 Time of Evaluation: 18:00 - Subjective Subjective: I D CONSULT NOTE PATIENT EXAMINED ,EMR REVIEWED MRI EVALUATED MICRO IS PENDING PATIENT ON HD WHEN EXAMINED HISTORY ALSO OF HIV(ON ARVs) DIAGNOSIS 1.MALIGNANT OTITIS EXTERNA 2, R/O HERPES ZOSTER(IN VIEW OF PAIN & HIV ,INITIALLY DISCUSSED c ) RECEIVED VANCOMYCIN/TOBRAMYCIN IN ER HAVE ORDERED RANDOM LEVELS IN AM VANCOMYCIN / TOBRRAMYCIN ORDERED POST HD STARTING 10/05/18 WOULD GIVE MEROPENEM 500MG OD PENDING TOMORROWS PLATELET COUNT ZOSYN IN ADJUSTED DOSE ACYCLOVIR IN ADJUSTED RENAL DOSE PENDING HZV IGM FULL CONSULT DICTATED WILL RE EVALUATE TOMORROW Objective - Vital Signs/Intake and Output Vital Signs (last 24 hours): Temp Pulse Resp BP Pulse Ox 98.6 F 86 18 152/78 H 97 10/03/18 17:00 10/03/18 17:00 10/03/18 17:00 10/03/18 17:00 10/03/18 17:00 - Medications Medications: Current Medications Acetaminophen (Tylenol 325mg Tab) 650 mg PO Q6 PRN PRN Reason: Pain, Mild (1-3) Last Admin: 10/03/18 11:56 Dose: 650 mg Albuterol (Ventolin Hfa 90 Mcg/Actuation (8 G)) 2 puff IH Q6H PRN PRN Reason: Shortness of Breath Amlodipine Besylate (Norvasc) 10 mg PO DAILY [facility] Last Admin: 10/03/18 09:48 Dose: Not Given Carvedilol (Coreg) 25 mg PO DAILY [facility] Last Admin: 10/03/18 09:48 Dose: Not Given Cinacalcet (Sensipar) 30 mg PO DAILY [facility] Last Admin: 10/03/18 11:46 Dose: 30 mg Ciprofloxacin/Dexamethasone (Ciprodex Otic) 4 drop AD BID [facility] Last Admin: 10/03/18 16:43 Dose: 4 applic Darunavir (Prezista) 800 mg PO DAILY [facility]; Protocol Last Admin: 10/03/18 10:54 Dose: 800 mg Dolutegravir Sodium (Tivicay) 50 mg PO DAILY [facility]; Protocol Last Admin: 10/03/18 11:46 Dose: 50 mg Epoetin Vipul (Procrit) 8,000 unit IV MWF [facility] Last Admin: 10/03/18 16:40 Dose: 8,000 unit Famotidine (Pepcid) 20 mg PO BID [facility] Last Admin: 10/03/18 16:45 Dose: 20 mg Meropenem 500 mg/ Sodium (Chloride) 100 mls @ 100 mls/hr IVPB Q24H [facility]; Protocol Acyclovir 400 mg/ Sodium (Chloride) 100 mls @ 100 mls/hr IV DAILY [facility]; Protocol Last Admin: 10/03/18 16:40 Dose: 100 mls/hr Piperacillin Sod/Tazobactam (Sod 2.25 gm/ Sodium Chloride) 100 mls @ 100 mls/hr IVPB Q12 [facility]; Protocol Tobramycin Sulfate 60 mg/ (Sodium Chloride) 101.5 mls @ 100 mls/hr IV MWF [facility]; Protocol Vancomycin HCl 1 gm/ Sodium (Chloride) 250 mls @ 166.667 mls/hr IVPB MWF [facility]; Protocol Losartan Potassium (Cozaar) 100 mg PO DAILY [facility] Ondansetron HCl (Zofran Inj) 4 mg IVP Q6 PRN PRN Reason: Nausea/Vomiting Oxycodone/Acetaminophen (Percocet 5/325 Mg Tab) 1 tab PO Q4 PRN PRN Reason: Pain, moderate (4-7) Stop: 10/06/18 02:54 Oxycodone/Acetaminophen (Percocet 5/325 Mg Tab) 2 tab PO Q6 PRN PRN Reason: Pain, severe (8-10) Stop: 10/06/18 03:01 Ritonavir (Norvir) 100 mg PO DAILY [facility] Last Admin: 10/03/18 10:53 Dose: 100 mg Sevelamer HCl (Renagel) 2,400 mg PO TID [facility] Last Admin: 10/03/18 16:44 Dose: 2,400 mg - Labs Labs: 10/03/18 05:30 10/03/18 05:30
[2018-10-03] MEDS: Meropenem 500 MG in Sodium Chloride 0.9% 100 ML IVPB SCH (22:03)
--- NOTE | 2018-10-04 06:44 | CON ---
DATE: 10/03/2018 REASON FOR CONSULTATION: Right ear pain. REQUESTING PHYSICIAN: HISTORY OF PRESENT ILLNESS: This is a 33-year-old female with a one-week history of moderate to severe right ear pain, constant, and she also has one-week history of hearing loss on the right, constant, moderate in intensity. No nasal congestion. No throat pain. PAST MEDICAL HISTORY: As noted in the chart by me. MEDICATIONS: As noted in the chart by me. ALLERGIES: NOTED IN THE CHART BY ME. PHYSICAL EXAMINATION: HEAD: Head is atraumatic and normocephalic. FACE: Good facial movements bilaterally. CONSTITUTIONAL: Well fed, well nourished. COMMUNICATION: Communicates well and appropriately. EXTERNAL NOSE AND EARS: There is some edema of the pinna close to the entrance of the ear canal. No deviated septum. No masses, no lesions, no erythema. Ears, there is edema of the ear canal on the right. ORAL CAVITY AND OROPHARYNX: No masses, no lesions, no erythema, no edema. LIPS AND GUMS: No masses, no lesions, no erythema, no edema. NECK: Supple. No thyromegaly, no goiter. LYMPH NODES: No lymphadenopathy of the neck. ASSESSMENT: 1. Possible malignant otitis externa. 2. Deviated septum. PLAN: Continue IV antibiotics. Continue ear drops. Follow up MRI and bone scan. Kapil León MD
[2018-10-04 07:17] LABS: BASO % 0.3 % (0.0-2.0); EOS # 0.1 K/uL (0.0-0.7); EOS % 2.8 % (0.0-4.0); HEMOGLOBIN 9.5 g/dL (12.0-16.0); LYMPH # 0.6 K/uL (1.0-4.3); LYMPH % 27.2 % (20.0-40.0); MEAN CELL VOLUME 90.2 fl (81.0-99.0); MEAN CORPUSCULAR HEMOGLOBIN 30.2 pg (27.0-31.0); MEAN CORPUSCULAR HGB CONC 33.4 g/dL (33.0-37.0); MEAN PLATELET VOLUME 8.4 fl (7.2-11.7); MONO # 0.2 K/uL (0.0-0.8); MONO % 9.6 % (0.0-10.0); NEUT # 1.4 K/uL (1.8-7.0); NEUT % 60.1 % (50.0-75.0); NRBC % 0.3 % (0.0-0.0); RBC 3.14 Mil/uL (3.80-5.20); RED CELL DISTRIBUTION WIDTH 18.5 % (11.5-14.5); WHITE BLOOD COUNT 2.4 K/uL (4.8-10.8)
[2018-10-04 07:30] LABS: CALCIUM 8.6 mg/dL (8.4-10.2)
[2018-10-04 07:31] LABS: VANCOMYCIN RANDOM 11.7 ug/mL
[2018-10-04] MEDS: Ciprofloxacin/Dexamethasone OTIC SUSP AD SCH ×2 (09:41→16:54)
--- NOTE | 2018-10-04 11:22 | CP.PCM.PN ---
Subjective - Date & Time of Evaluation Date of Evaluation: 10/04/18 Time of Evaluation: 11:21 - Subjective Subjective: Patient is stable Vital signs stable feeling much better No nausea no vomiting Objective - Vital Signs/Intake and Output Vital Signs (last 24 hours): Temp Pulse Resp BP Pulse Ox 98.5 F 92 H 20 162/91 H 97 10/04/18 08:14 10/04/18 09:45 10/04/18 08:14 10/04/18 09:45 10/04/18 08:14 - Medications Medications: Current Medications Acetaminophen (Tylenol 325mg Tab) 650 mg PO Q6 PRN PRN Reason: Pain, Mild (1-3) Last Admin: 10/03/18 11:56 Dose: 650 mg Albuterol (Ventolin Hfa 90 Mcg/Actuation (8 G)) 2 puff IH Q6H PRN PRN Reason: Shortness of Breath Amlodipine Besylate (Norvasc) 10 mg PO DAILY [facility] Last Admin: 10/04/18 09:45 Dose: 10 mg Carvedilol (Coreg) 25 mg PO DAILY [facility] Last Admin: 10/04/18 09:44 Dose: 25 mg Cinacalcet (Sensipar) 30 mg PO DAILY [facility] Last Admin: 10/04/18 09:50 Dose: 30 mg Ciprofloxacin/Dexamethasone (Ciprodex Otic) 4 drop AD BID [facility] Last Admin: 10/04/18 09:41 Dose: 1 applic Darunavir (Prezista) 800 mg PO DAILY [facility]; Protocol Last Admin: 10/04/18 09:47 Dose: 800 mg Dolutegravir Sodium (Tivicay) 50 mg PO DAILY [facility]; Protocol Last Admin: 10/04/18 09:50 Dose: 50 mg Epoetin Vipul (Procrit) 8,000 unit IV MWF [facility] Last Admin: 10/03/18 16:40 Dose: 8,000 unit Famotidine (Pepcid) 20 mg PO BID [facility] Last Admin: 10/04/18 09:47 Dose: 20 mg Meropenem 500 mg/ Sodium (Chloride) 100 mls @ 100 mls/hr IVPB Q24H [facility]; Protocol Last Admin: 10/03/18 22:03 Dose: 100 mls/hr Acyclovir 400 mg/ Sodium (Chloride) 100 mls @ 100 mls/hr IV DAILY [facility]; Protocol Last Admin: 10/03/18 16:40 Dose: 100 mls/hr Piperacillin Sod/Tazobactam (Sod 2.25 gm/ Sodium Chloride) 100 mls @ 100 mls/hr IVPB Q12 [facility]; Protocol Last Admin: 10/04/18 09:50 Dose: 100 mls/hr Tobramycin Sulfate 60 mg/ (Sodium Chloride) 101.5 mls @ 100 mls/hr IV MWF [facility]; Protocol Vancomycin HCl 1 gm/ Sodium (Chloride) 250 mls @ 166.667 mls/hr IVPB MWF [facility]; Protocol Losartan Potassium (Cozaar) 100 mg PO DAILY [facility] Ondansetron HCl (Zofran Inj) 4 mg IVP Q6 PRN PRN Reason: Nausea/Vomiting Oxycodone/Acetaminophen (Percocet 5/325 Mg Tab) 1 tab PO Q4 PRN PRN Reason: Pain, moderate (4-7) Stop: 10/06/18 02:54 Oxycodone/Acetaminophen (Percocet 5/325 Mg Tab) 2 tab PO Q6 PRN PRN Reason: Pain, severe (8-10) Stop: 10/06/18 03:01 Ritonavir (Norvir) 100 mg PO DAILY [facility] Last Admin: 10/04/18 09:47 Dose: 100 mg Sevelamer HCl (Renagel) 2,400 mg PO TID [facility] Last Admin: 10/04/18 10:12 Dose: 2,400 mg - Labs Labs: 10/04/18 05:40 10/04/18 05:40 - Constitutional Appears: No Acute Distress - Eye Exam Eye Exam: Conjunctival injection - ENT Exam ENT Exam: Mucous Membranes Moist - Respiratory Exam Respiratory Exam: NORMAL BREATHING PATTERN. absent: Chest Wall Tenderness - Cardiovascular Exam Cardiovascular Exam: REGULAR RHYTHM. absent: Gallop, JVD, Rubs - GI/Abdominal Exam GI & Abdominal Exam: Soft, Normal Bowel Sounds - Extremities Exam Extremities Exam: absent: Calf Tenderness - Back Exam Back Exam: absent: CVA tenderness (L), CVA tenderness (R) - Neurological Exam Neurological Exam: Alert - Psychiatric Exam Psychiatric exam: Normal Affect - Skin Skin Exam: absent: Cyanosis Assessment and Plan (1) ESRD (end stage renal disease) Assessment & Plan: Assessment and Plan: End-stage renal disease on hemodialysis Monday Right ear infection and cellulitis Pancytopenia Hyperphosphatemia Secondary hyperparathyroidism HIV Cardiomyopathy history Recommendation Patient is stable Vital signs stable feeling much better Continue antibiotics as per ID Continue hemodialysis as scheduled Status: Chronic
--- NOTE | 2018-10-04 12:37 | CP.PCM.PN ---
Subjective - Date & Time of Evaluation Date of Evaluation: 10/04/18 Time of Evaluation: 10:00 - Subjective Subjective: 33 y/o F was seen and examined by bedside. Pt reports feeling better, R ear pain has improved but still present. Pt afebrile, tolerating PO, with NO acute events overnight. Pt denies chills, sweats, chest pain, SOB, N/V, abdominal pain or dysuria. -Pt was diagnosed with HIV on 2001, believes she had it a few years before diagnosis. Pt was also evaluated by Dr Singh, [employer], 1 year ago due to heart murmur; pt reports normal cardiac stress test and normal echocardiography and no abnormalities reported by [employer]. Objective - Vital Signs/Intake and Output Vital Signs (last 24 hours): Temp Pulse Resp BP Pulse Ox 98.5 F 92 H 20 162/91 H 97 10/04/18 08:14 10/04/18 09:45 10/04/18 08:14 10/04/18 09:45 10/04/18 08:14 - Medications Medications: Current Medications Acetaminophen (Tylenol 325mg Tab) 650 mg PO Q6 PRN PRN Reason: Pain, Mild (1-3) Last Admin: 10/03/18 11:56 Dose: 650 mg Albuterol (Ventolin Hfa 90 Mcg/Actuation (8 G)) 2 puff IH Q6H PRN PRN Reason: Shortness of Breath Amlodipine Besylate (Norvasc) 10 mg PO DAILY [facility] Last Admin: 10/04/18 09:45 Dose: 10 mg Carvedilol (Coreg) 25 mg PO DAILY [facility] Last Admin: 10/04/18 09:44 Dose: 25 mg Cinacalcet (Sensipar) 30 mg PO DAILY [facility] Last Admin: 10/04/18 09:50 Dose: 30 mg Ciprofloxacin/Dexamethasone (Ciprodex Otic) 4 drop AD BID [facility] Last Admin: 10/04/18 09:41 Dose: 1 applic Darunavir (Prezista) 800 mg PO DAILY [facility]; Protocol Last Admin: 10/04/18 09:47 Dose: 800 mg Dolutegravir Sodium (Tivicay) 50 mg PO DAILY [facility]; Protocol Last Admin: 10/04/18 09:50 Dose: 50 mg Epoetin Vipul (Procrit) 8,000 unit IV MWF [facility] Last Admin: 10/03/18 16:40 Dose: 8,000 unit Famotidine (Pepcid) 20 mg PO BID [facility] Last Admin: 10/04/18 09:47 Dose: 20 mg Meropenem 500 mg/ Sodium (Chloride) 100 mls @ 100 mls/hr IVPB Q24H [facility]; Protocol Last Admin: 10/03/18 22:03 Dose: 100 mls/hr Acyclovir 400 mg/ Sodium (Chloride) 100 mls @ 100 mls/hr IV DAILY [facility]; Protocol Last Admin: 10/03/18 16:40 Dose: 100 mls/hr Piperacillin Sod/Tazobactam (Sod 2.25 gm/ Sodium Chloride) 100 mls @ 100 mls/hr IVPB Q12 [facility]; Protocol Last Admin: 10/04/18 09:50 Dose: 100 mls/hr Tobramycin Sulfate 60 mg/ (Sodium Chloride) 101.5 mls @ 100 mls/hr IV MWF [facility]; Protocol Vancomycin HCl 1 gm/ Sodium (Chloride) 250 mls @ 166.667 mls/hr IVPB MWF [facility]; Protocol Losartan Potassium (Cozaar) 100 mg PO DAILY [facility] Ondansetron HCl (Zofran Inj) 4 mg IVP Q6 PRN PRN Reason: Nausea/Vomiting Oxycodone/Acetaminophen (Percocet 5/325 Mg Tab) 1 tab PO Q4 PRN PRN Reason: Pain, moderate (4-7) Stop: 10/06/18 02:54 Oxycodone/Acetaminophen (Percocet 5/325 Mg Tab) 2 tab PO Q6 PRN PRN Reason: Pain, severe (8-10) Stop: 10/06/18 03:01 Ritonavir (Norvir) 100 mg PO DAILY [facility] Last Admin: 10/04/18 09:47 Dose: 100 mg Sevelamer HCl (Renagel) 2,400 mg PO TID [facility] Last Admin: 10/04/18 10:12 Dose: 2,400 mg - Labs Labs: 10/04/18 05:40 10/04/18 05:40 - Constitutional Appears: Well, No Acute Distress - Head Exam Head Exam: ATRAUMATIC, NORMAL INSPECTION - Eye Exam Eye Exam: EOMI, Normal appearance - ENT Exam Additional comments: Right ear: presence of swelling on external ear, dry crusty lesions looks lamp cleaner street light than yesterday, erythema has reduced. Tenderness on earlobe tragus and palpation. Able to perform otoscope exam, prominent swelling on ear canal made difficult the visualization of the tympanic membrane. No vesicular lesions appreciated. Left ear: No tenderness on earlobe palpation. Ear canal was non-erythematous, no swelling, TM was opaque with no erythema. - Neck Exam Neck Exam: Full ROM, Normal Inspection. absent: Meningismus - Respiratory Exam Respiratory Exam: NORMAL BREATHING PATTERN. absent: Rales, Rhonchi, Wheezes, Respiratory Distress - Cardiovascular Exam Cardiovascular Exam: +S1, +S2, Murmur - GI/Abdominal Exam GI & Abdominal Exam: Soft, Normal Bowel Sounds. absent: Distended, Guarding, Tenderness - Extremities Exam Extremities Exam: Full ROM. absent: Calf Tenderness, Pedal Edema, Tenderness - Neurological Exam Neurological Exam: Alert, Awake, Oriented x3 Assessment and Plan - Assessment and Plan (Free Text) Assessment: 33 y/o female with hx of Dilated cardiomyopathy, pulmonary HTN, Chronic Pancytopenia, HIV, HTN, ESRD on HD (MWF), presents with R ear pain associated with yellow drainage and headache. - Facial Bone CT: Opacification of right mastoid air cells and middle ear cavity suggestive of Otomastoiditis. Circumferential wall thickening of external ear canal..may represent Otitis External #Right Otitis Externa, Malignant. - IAC w/ contrast MRI: Right otitis externa reiterated without abscess. Right mastoid effusion reiterated with otitis media less well appreciated currently but proven in prior CT 10/02/2018. Left mastoid effusion identified once again. Left otitis media better seen in prior CT than current MRI. - Afebrile, Tachycardic, Leukopenic 2.3 - ENT on board (Dr. León): c/w antibiotics. - ID on board (Dr. Rogers): On IV Vanco, Zosyn, Merrem andTobramycin - Wound Care for external ear canal - Acyclovir added to empiric treatment. - F/U ID and ENT recommendations. #ESRD on HD MWF -HD MWF -Nephro logy consulted, Dr. Henley #HIV - compliant with HAART therapy - Last CD4 215, viral load 100 on 08/29/18 - Follows Dr. Morales in [facility] #Cardiomyopathy, dilated, nonischemic, stable -Euvolemic on exam, no jvd, lungs clear, no LE Edema, POSITIVE systolic murmur (chronic) -last echo (03/23), EF 25% -Monitor volume status daily, avoid fluid overload #Pancytopenia, chronic -Likely 2/2 to HIV -Evaluated by [employer],Dr. Larsen in prior admission- Pancytopenia likely 2/2 to HIV -F/U CBC #Transaminitits, chronic, mild -Hepatomegaly noted on repeat abdominal CT (07/13) -Likely secondary to Congestive hepatopathy -Hepatitis serology negative #HTN -Normotensive -C/W Norvasc and Ibesartan (NF,will start equivocal med) -Continue to monitor #DVT prophylaxis -Heparin #Diet -Renal
[2018-10-04] MEDS: Acyclovir 400 MG in Sodium Chloride 0.9% 100 ML IV SCH (13:24)
--- NOTE | 2018-10-04 19:20 | CP.PCM.PN ---
Subjective - Date & Time of Evaluation Date of Evaluation: 10/04/18 Time of Evaluation: 19:16 - Subjective Subjective: I D NOTE WOULD CONTINUE IV RX CONSIDERING HIV STATUS AND LAB/RADIOLOGY FINDINGS PLATELETS APPEAR TO BE STABLE(CONTINUE MEROPENEM) WILL DC ZOSYN IN AM Objective - Vital Signs/Intake and Output Vital Signs (last 24 hours): Temp Pulse Resp BP Pulse Ox 98.4 F 79 18 117/69 100 10/04/18 15:40 10/04/18 15:40 10/04/18 15:40 10/04/18 15:40 10/04/18 15:40 - Medications Medications: Current Medications Acetaminophen (Tylenol 325mg Tab) 650 mg PO Q6 PRN PRN Reason: Pain, Mild (1-3) Last Admin: 10/03/18 11:56 Dose: 650 mg Albuterol (Ventolin Hfa 90 Mcg/Actuation (8 G)) 2 puff IH Q6H PRN PRN Reason: Shortness of Breath Amlodipine Besylate (Norvasc) 10 mg PO DAILY [facility] Last Admin: 10/04/18 09:45 Dose: 10 mg Carvedilol (Coreg) 25 mg PO DAILY [facility] Last Admin: 10/04/18 09:44 Dose: 25 mg Cinacalcet (Sensipar) 30 mg PO DAILY [facility] Last Admin: 10/04/18 09:50 Dose: 30 mg Ciprofloxacin/Dexamethasone (Ciprodex Otic) 4 drop AD BID [facility] Last Admin: 10/04/18 16:54 Dose: 4 applic Darunavir (Prezista) 800 mg PO DAILY [facility]; Protocol Last Admin: 10/04/18 09:47 Dose: 800 mg Dolutegravir Sodium (Tivicay) 50 mg PO DAILY [facility]; Protocol Last Admin: 10/04/18 09:50 Dose: 50 mg Epoetin Vipul (Procrit) 8,000 unit IV MWF [facility] Last Admin: 10/03/18 16:40 Dose: 8,000 unit Famotidine (Pepcid) 20 mg PO BID [facility] Last Admin: 10/04/18 16:55 Dose: 20 mg Meropenem 500 mg/ Sodium (Chloride) 100 mls @ 100 mls/hr IVPB Q24H [facility]; Protocol Last Admin: 10/03/18 22:03 Dose: 100 mls/hr Acyclovir 400 mg/ Sodium (Chloride) 100 mls @ 100 mls/hr IV DAILY [facility]; Protocol Last Admin: 10/04/18 13:24 Dose: 100 mls/hr Piperacillin Sod/Tazobactam (Sod 2.25 gm/ Sodium Chloride) 100 mls @ 100 mls/hr IVPB Q12 [facility]; Protocol Last Admin: 10/04/18 09:50 Dose: 100 mls/hr Tobramycin Sulfate 60 mg/ (Sodium Chloride) 101.5 mls @ 100 mls/hr IV MWF [facility]; Protocol Vancomycin HCl 1 gm/ Sodium (Chloride) 250 mls @ 166.667 mls/hr IVPB MWF [facility]; Protocol Losartan Potassium (Cozaar) 100 mg PO DAILY [facility] Ondansetron HCl (Zofran Inj) 4 mg IVP Q6 PRN PRN Reason: Nausea/Vomiting Oxycodone/Acetaminophen (Percocet 5/325 Mg Tab) 1 tab PO Q4 PRN PRN Reason: Pain, moderate (4-7) Stop: 10/06/18 02:54 Oxycodone/Acetaminophen (Percocet 5/325 Mg Tab) 2 tab PO Q6 PRN PRN Reason: Pain, severe (8-10) Stop: 10/06/18 03:01 Ritonavir (Norvir) 100 mg PO DAILY [facility] Last Admin: 10/04/18 09:47 Dose: 100 mg Sevelamer HCl (Renagel) 2,400 mg PO TID [facility] Last Admin: 10/04/18 16:55 Dose: 2,400 mg - Labs Labs: 10/04/18 05:40 10/04/18 05:40
[2018-10-04] MEDS: Meropenem 500 MG in Sodium Chloride 0.9% 100 ML IVPB SCH (22:33)
--- NOTE | 2018-10-05 07:27 | CP.PCM.PN ---
Subjective - Date & Time of Evaluation Date of Evaluation: 10/05/18 Time of Evaluation: 07:27 - Subjective Subjective: Pt seen and examined at bedside this AM. Denies significant overnight events. Reports mild discharge from R ear. Also reports resolution of pain at posterior R ear. She reports mild improvement in hearing of affected ear. Objective - Vital Signs/Intake and Output Vital Signs (last 24 hours): Temp Pulse Resp BP Pulse Ox 98.7 F 88 20 129/77 100 10/05/18 05:00 10/04/18 23:46 10/04/18 23:46 10/04/18 23:46 10/04/18 23:46 - Medications Medications: Current Medications Acetaminophen (Tylenol 325mg Tab) 650 mg PO Q6 PRN PRN Reason: Pain, Mild (1-3) Last Admin: 10/03/18 11:56 Dose: 650 mg Albuterol (Ventolin Hfa 90 Mcg/Actuation (8 G)) 2 puff IH Q6H PRN PRN Reason: Shortness of Breath Amlodipine Besylate (Norvasc) 10 mg PO DAILY [facility] Last Admin: 10/04/18 09:45 Dose: 10 mg Carvedilol (Coreg) 25 mg PO DAILY [facility] Last Admin: 10/04/18 09:44 Dose: 25 mg Cinacalcet (Sensipar) 30 mg PO DAILY [facility] Last Admin: 10/04/18 09:50 Dose: 30 mg Ciprofloxacin/Dexamethasone (Ciprodex Otic) 4 drop AD BID [facility] Last Admin: 10/04/18 16:54 Dose: 4 applic Darunavir (Prezista) 800 mg PO DAILY [facility]; Protocol Last Admin: 10/04/18 09:47 Dose: 800 mg Dolutegravir Sodium (Tivicay) 50 mg PO DAILY [facility]; Protocol Last Admin: 10/04/18 09:50 Dose: 50 mg Epoetin Vipul (Procrit) 8,000 unit IV MWF [facility] Last Admin: 10/03/18 16:40 Dose: 8,000 unit Famotidine (Pepcid) 20 mg PO BID [facility] Last Admin: 10/04/18 16:55 Dose: 20 mg Meropenem 500 mg/ Sodium (Chloride) 100 mls @ 100 mls/hr IVPB Q24H [facility]; Protocol Last Admin: 10/04/18 22:33 Dose: 100 mls/hr Acyclovir 400 mg/ Sodium (Chloride) 100 mls @ 100 mls/hr IV DAILY [facility]; Protocol Last Admin: 10/04/18 13:24 Dose: 100 mls/hr Piperacillin Sod/Tazobactam (Sod 2.25 gm/ Sodium Chloride) 100 mls @ 100 mls/hr IVPB Q12 [facility]; Protocol Last Admin: 10/04/18 21:14 Dose: 100 mls/hr Tobramycin Sulfate 60 mg/ (Sodium Chloride) 101.5 mls @ 100 mls/hr IV MWF [facility]; Protocol Vancomycin HCl 1 gm/ Sodium (Chloride) 250 mls @ 166.667 mls/hr IVPB MWF [facility]; Protocol Losartan Potassium (Cozaar) 100 mg PO DAILY [facility] Ondansetron HCl (Zofran Inj) 4 mg IVP Q6 PRN PRN Reason: Nausea/Vomiting Oxycodone/Acetaminophen (Percocet 5/325 Mg Tab) 1 tab PO Q4 PRN PRN Reason: Pain, moderate (4-7) Stop: 10/06/18 02:54 Oxycodone/Acetaminophen (Percocet 5/325 Mg Tab) 2 tab PO Q6 PRN PRN Reason: Pain, severe (8-10) Stop: 10/06/18 03:01 Ritonavir (Norvir) 100 mg PO DAILY [facility] Last Admin: 10/04/18 09:47 Dose: 100 mg Sevelamer HCl (Renagel) 2,400 mg PO TID [facility] Last Admin: 10/04/18 16:55 Dose: 2,400 mg - Labs Labs: 10/04/18 05:40 10/04/18 05:40 - Constitutional Appears: Well, No Acute Distress - Eye Exam Eye Exam: EOMI - ENT Exam ENT Exam: Mucous Membranes Moist Additional comments: R ear: mild erythema. mild tenderness to palpation at tragus of ear. - Respiratory Exam Respiratory Exam: Clear to Ausculation Bilateral, NORMAL BREATHING PATTERN. absent: Wheezes - Cardiovascular Exam Cardiovascular Exam: REGULAR RHYTHM, +S1, +S2 - GI/Abdominal Exam GI & Abdominal Exam: Soft, Normal Bowel Sounds. absent: Tenderness - Extremities Exam Extremities Exam: absent: Calf Tenderness - Neurological Exam Neurological Exam: Alert, Awake, Oriented x3. absent: CN II-XII Intact (Decreased CN VIII to R) - Psychiatric Exam Psychiatric exam: Normal Affect, Normal Mood Assessment and Plan - Assessment and Plan (Free Text) Assessment: 33 y/o female with hx of dilated cardiomyopathy, pulmonary HTN, Chronic Pancytopenia, HIV, HTN, ESRD on HD (MWF), presents with R ear pain associated with yellow drainage and headache. Plan: Facial Bone CT: Opacification of right mastoid air cells and middle ear cavity suggestive of Otomastoiditis. Circumferential wall thickening of external ear canal. May represent Otitis Externa MRI: orbit/face/neck: 1. Right otitis externa reiterated without abscess. Right mastoid effusion reiterated with otitis media less well appreciated currently but proven in prior CT 10/02/2018. 2. Left mastoid effusion identified. Left otitis media better seen in prior CT than current MRI. 3. Normal IAC's bilaterally. Right Otitis Externa, Malignant. - IAC w/ contrast MRI - Afebrile, Leukopenic 2.6 - ENT Dr. León: c/w antibiotics. - ID Dr. Rogers: IV Vanco, Meropenem and Tobramycin; d/c zosyn - Acyclovir added to empiric treatment. - Wound Care for external ear canal - F/U ID and ENT recommendations and BONE SCAN ESRD on HD MWF -HD MWF -Nephrology Dr. Henley HIV - compliant with HAART therapy - Last CD4 215, viral load 100 on 08/29/18 - Follow[facility] Morales in [facility] Cardiomyopathy, dilated, nonischemic, stable -Euvolemic on exam, no jvd, lungs clear, no LE Edema, POSITIVE systolic murmur (chronic) -last echo (03/23), EF 25% -Monitor volume status daily, avoid fluid overload Pancytopenia, chronic -Likely 2/2 to HIV -Evaluated by [employer], Dr. Larsen in prior admission- Pancytopenia likely 2/2 to HIV -F/U CBC Transaminitits, chronic, mild -Hepatomegaly noted on repeat abdominal CT (07/13) -Likely secondary to Congestive hepatopathy -Hepatitis serology negative HTN -Normotensive -C/W Norvasc and Ibesartan (NF,will start equivocal med) -Continue to monitor DVT prophylaxis -SCD Diet -NPO for bone scan; Renal after scan is complete
[2018-10-05 07:43] LABS: HEMOGLOBIN 9.2 g/dL (12.0-16.0); MEAN CELL VOLUME 90.5 fl (81.0-99.0); MEAN CORPUSCULAR HEMOGLOBIN 30.2 pg (27.0-31.0); MEAN CORPUSCULAR HGB CONC 33.3 g/dL (33.0-37.0); RBC 3.06 Mil/uL (3.80-5.20); RED CELL DISTRIBUTION WIDTH 18.2 % (11.5-14.5); WHITE BLOOD COUNT 2.6 K/uL (4.8-10.8)
[2018-10-05 07:58] LABS: CALCIUM 8.6 mg/dL (8.4-10.2)
[2018-10-05] MEDS: Ciprofloxacin/Dexamethasone OTIC SUSP AD SCH ×2 (08:35→17:48)
[2018-10-05] MEDS ORDERED: Tobramycin inj 60 MG in Sodium Chloride 0.9% 100 ML IV SCH (09:00)
[2018-10-05] MEDS: Epoetin Alfa 20000 UNIT/ML (RENAL DOSE) IV SCH (10:00)
--- NOTE | 2018-10-05 11:54 | CP.PCM.PN ---
Subjective - Date & Time of Evaluation Date of Evaluation: 10/05/18 Time of Evaluation: 11:56 - Subjective Subjective: Patient awake sitting up in bed she appears to be comfortable Patient eating well no nausea no vomiting Vital signs stable Objective - Vital Signs/Intake and Output Vital Signs (last 24 hours): Temp Pulse Resp BP Pulse Ox 96.8 F L 87 20 145/78 99 10/05/18 08:17 10/05/18 08:55 10/05/18 08:17 10/05/18 08:55 10/05/18 08:17 - Medications Medications: Current Medications Acetaminophen (Tylenol 325mg Tab) 650 mg PO Q6 PRN PRN Reason: Pain, Mild (1-3) Last Admin: 10/03/18 11:56 Dose: 650 mg Albuterol (Ventolin Hfa 90 Mcg/Actuation (8 G)) 2 puff IH Q6H PRN PRN Reason: Shortness of Breath Amlodipine Besylate (Norvasc) 10 mg PO DAILY [facility] Last Admin: 10/05/18 08:55 Dose: 10 mg Carvedilol (Coreg) 25 mg PO DAILY [facility] Last Admin: 10/05/18 08:36 Dose: 25 mg Cinacalcet (Sensipar) 30 mg PO DAILY [facility] Last Admin: 10/05/18 08:43 Dose: 30 mg Ciprofloxacin/Dexamethasone (Ciprodex Otic) 4 drop AD BID [facility] Last Admin: 10/05/18 08:35 Dose: 4 applic Darunavir (Prezista) 800 mg PO DAILY [facility]; Protocol Last Admin: 10/05/18 08:38 Dose: 800 mg Dolutegravir Sodium (Tivicay) 50 mg PO DAILY [facility]; Protocol Last Admin: 10/04/18 09:50 Dose: 50 mg Epoetin Vipul (Procrit) 8,000 unit IV MWF [facility] Last Admin: 10/03/18 16:40 Dose: 8,000 unit Famotidine (Pepcid) 20 mg PO BID [facility] Last Admin: 10/05/18 08:37 Dose: 20 mg Meropenem 500 mg/ Sodium (Chloride) 100 mls @ 100 mls/hr IVPB Q24H [facility]; Protocol Last Admin: 10/04/18 22:33 Dose: 100 mls/hr Acyclovir 400 mg/ Sodium (Chloride) 100 mls @ 100 mls/hr IV DAILY [facility]; Protocol Last Admin: 10/04/18 13:24 Dose: 100 mls/hr Tobramycin Sulfate 60 mg/ (Sodium Chloride) 101.5 mls @ 100 mls/hr IV MWF [facility]; Protocol Last Admin: 10/05/18 10:34 Dose: 100 mls/hr Vancomycin HCl 1 gm/ Sodium (Chloride) 250 mls @ 166.667 mls/hr IVPB MWF [facility]; Protocol Losartan Potassium (Cozaar) 100 mg PO DAILY [facility] Ondansetron HCl (Zofran Inj) 4 mg IVP Q6 PRN PRN Reason: Nausea/Vomiting Oxycodone/Acetaminophen (Percocet 5/325 Mg Tab) 1 tab PO Q4 PRN PRN Reason: Pain, moderate (4-7) Stop: 10/06/18 02:54 Oxycodone/Acetaminophen (Percocet 5/325 Mg Tab) 2 tab PO Q6 PRN PRN Reason: Pain, severe (8-10) Stop: 10/06/18 03:01 Ritonavir (Norvir) 100 mg PO DAILY [facility] Last Admin: 10/05/18 08:37 Dose: 100 mg Sevelamer HCl (Renagel) 2,400 mg PO TID [facility] Last Admin: 10/05/18 08:43 Dose: 2,400 mg - Labs Labs: 10/05/18 06:50 10/05/18 06:50 - Constitutional Appears: No Acute Distress - Eye Exam Eye Exam: Conjunctival injection - ENT Exam ENT Exam: Mucous Membranes Moist - Neck Exam Neck Exam: absent: Lymphadenopathy - Respiratory Exam Respiratory Exam: NORMAL BREATHING PATTERN. absent: Chest Wall Tenderness - Cardiovascular Exam Cardiovascular Exam: absent: Gallop, Rubs - GI/Abdominal Exam GI & Abdominal Exam: Soft, Normal Bowel Sounds - Extremities Exam Extremities Exam: absent: Calf Tenderness - Back Exam Back Exam: absent: CVA tenderness (L), CVA tenderness (R) - Neurological Exam Neurological Exam: Alert - Psychiatric Exam Psychiatric exam: Normal Affect - Skin Skin Exam: absent: Cyanosis Assessment and Plan (1) ESRD (end stage renal disease) Assessment & Plan: End-stage renal disease on hemodialysis Monday Right ear infection and cellulitis Pancytopenia Hyperphosphatemia Secondary hyperparathyroidism HIV Cardiomyopathy history Recommendation Patient is stable Vital signs stable feeling much better Continue antibiotics as per ID Continue hemodialysis as scheduled shortly MRI report IMPRESSION: 1. Right otitis externa reiterated without abscess. Right mastoid effusion reiterated with otitis media less well appreciated currently but proven in prior CT 10/02/2018. 2. Left mastoid effusion identified once again. Left otitis media better seen in prior CT than current MRI. 3. Normal IAC's bilaterally. Status: Chronic
--- NOTE | 2018-10-05 13:52 | CP.PCM.PN ---
Subjective - Date & Time of Evaluation Date of Evaluation: 10/05/18 Time of Evaluation: 13:52 - Subjective Subjective: I D NOTE IN VIEW OF HISTORY ,FEEL PATIENT SHOULD HAVE 4 TO 6 WEEKS OF IV ANTIBIOTIC TREATMENT Objective - Vital Signs/Intake and Output Vital Signs (last 24 hours): Temp Pulse Resp BP Pulse Ox 96.8 F L 87 20 145/78 99 10/05/18 08:17 10/05/18 08:55 10/05/18 08:17 10/05/18 08:55 10/05/18 08:17 - Medications Medications: Current Medications Acetaminophen (Tylenol 325mg Tab) 650 mg PO Q6 PRN PRN Reason: Pain, Mild (1-3) Last Admin: 10/03/18 11:56 Dose: 650 mg Albuterol (Ventolin Hfa 90 Mcg/Actuation (8 G)) 2 puff IH Q6H PRN PRN Reason: Shortness of Breath Amlodipine Besylate (Norvasc) 10 mg PO DAILY [facility] Last Admin: 10/05/18 08:55 Dose: 10 mg Carvedilol (Coreg) 25 mg PO DAILY [facility] Last Admin: 10/05/18 08:36 Dose: 25 mg Cinacalcet (Sensipar) 30 mg PO DAILY [facility] Last Admin: 10/05/18 08:43 Dose: 30 mg Ciprofloxacin/Dexamethasone (Ciprodex Otic) 4 drop AD BID [facility] Last Admin: 10/05/18 08:35 Dose: 4 applic Darunavir (Prezista) 800 mg PO DAILY [facility]; Protocol Last Admin: 10/05/18 08:38 Dose: 800 mg Dolutegravir Sodium (Tivicay) 50 mg PO DAILY [facility]; Protocol Last Admin: 10/04/18 09:50 Dose: 50 mg Epoetin Vipul (Procrit) 8,000 unit IV MWF [facility] Last Admin: 10/03/18 16:40 Dose: 8,000 unit Famotidine (Pepcid) 20 mg PO BID [facility] Last Admin: 10/05/18 08:37 Dose: 20 mg Meropenem 500 mg/ Sodium (Chloride) 100 mls @ 100 mls/hr IVPB Q24H [facility]; Protocol Last Admin: 10/04/18 22:33 Dose: 100 mls/hr Tobramycin Sulfate 60 mg/ (Sodium Chloride) 101.5 mls @ 100 mls/hr IV MWF [facility]; Protocol Last Admin: 10/05/18 10:34 Dose: 100 mls/hr Acyclovir 400 mg/ Sodium (Chloride) 100 mls @ 100 mls/hr IV DAILY@1000 [facility]; Protocol Vancomycin HCl 1 gm/ Sodium (Chloride) 250 mls @ 166.667 mls/hr IVPB MWF@1000 [facility]; Protocol Losartan Potassium (Cozaar) 100 mg PO DAILY [facility] Ondansetron HCl (Zofran Inj) 4 mg IVP Q6 PRN PRN Reason: Nausea/Vomiting Oxycodone/Acetaminophen (Percocet 5/325 Mg Tab) 1 tab PO Q4 PRN PRN Reason: Pain, moderate (4-7) Stop: 10/06/18 02:54 Oxycodone/Acetaminophen (Percocet 5/325 Mg Tab) 2 tab PO Q6 PRN PRN Reason: Pain, severe (8-10) Stop: 10/06/18 03:01 Ritonavir (Norvir) 100 mg PO DAILY [facility] Last Admin: 10/05/18 08:37 Dose: 100 mg Sevelamer HCl (Renagel) 2,400 mg PO TID [facility] Last Admin: 10/05/18 08:43 Dose: 2,400 mg - Labs Labs: 10/05/18 06:50 10/05/18 06:50
--- NOTE | 2018-10-05 15:10 | CP.PCM.DIS ---
Provider - Provider Date of Admission: 10/05/18 10:51 Attending physician: Merrill Erazo MD Consults: 10/02/18 23:11 Infectious Disease Consult Stat Comment: aware 23:00 Consulting Provider: Amilcar Rogers Consulting Physician: Amilcar Rogers Reason for Consult: r/out malignant otitis externa Otolaryngology Consult Stat Consulting Provider: Kapil León Consulting Physician: Kapil León Reason for Consult: r/out malignant external otitis 10/02/18 23:12 Nephrology Consult Stat Comment: Consulting Provider: Christopher Samuel Consulting Physician: Christopher Samuel Reason for Consult: ESRD on HD 10/03/18 02:58 Nursing Referral for Wound Care Routine Comment: Physician Instructions: Reason For Exam: external ear, cleana and debride ear canal 10/03/18 09:00 Case Management Referral Routine Comment: Physician Instructions: Reason For Exam: dialysis pt needs assist at home Reason for Referral: Community Administrator Eval Nursing Referral for Palliative Care Routine Comment: ESRD Consulting Provider: Physician Instructions: Reason For Exam: dialysis pt Social Work Referral Routine Comment: dialysis pt Physician Instructions: Reason For Exam: dialysis pt MWF Time Spent in preparation of Discharge (in minutes): 30 Diagnosis - Discharge Diagnosis (1) Otitis externa Status: Acute Hospital Course - Lab Results Lab Results: Micro Results 10/04/18 12:00 Ear - Right Gram Stain - Final 10/04/18 12:00 Ear - Right Wound Culture - Preliminary NO GROWTH AFTER 24 HOURS 10/02/18 00:20 Blood Blood Culture - Preliminary NO GROWTH AFTER 48 HOURS 10/02/18 23:50 Blood Blood Culture - Preliminary NO GROWTH AFTER 48 HOURS Most Recent Lab Values WBC 2.6 K/uL (4.8-10.8) L 10/05/18 06:50 RBC 3.06 Mil/uL (3.80-5.20) L 10/05/18 06:50 Hgb 9.2 g/dL (12.0-16.0) L 10/05/18 06:50 Hct 27.7 % (34.0-47.0) L 10/05/18 06:50 MCV 90.5 fl (81.0-99.0) 10/05/18 06:50 MCH 30.2 pg (27.0-31.0) 10/05/18 06:50 MCHC 33.3 g/dL (33.0-37.0) 10/05/18 06:50 RDW 18.2 % (11.5-14.5) H 10/05/18 06:50 Plt Count 68 K/uL (130-400) L 10/05/18 06:50 MPV 8.4 fl (7.2-11.7) 10/04/18 05:40 Neut % (Auto) 60.1 % (50.0-75.0) 10/04/18 05:40 Lymph % (Auto) 27.2 % (20.0-40.0) 10/04/18 05:40 Taney % (Auto) 9.6 % (0.0-10.0) 10/04/18 05:40 Eos % (Auto) 2.8 % (0.0-4.0) 10/04/18 05:40 Baso % (Auto) 0.3 % (0.0-2.0) 10/04/18 05:40 Neut # (Auto) 1.4 K/uL (1.8-7.0) L 10/04/18 05:40 Lymph # (Auto) 0.6 K/uL (1.0-4.3) L 10/04/18 05:40 Taney # (Auto) 0.2 K/uL (0.0-0.8) 10/04/18 05:40 Eos # (Auto) 0.1 K/uL (0.0-0.7) 10/04/18 05:40 Baso # (Auto) 0.0 K/uL (0.0-0.2) 10/04/18 05:40 ESR 75 mm/hr (0-20) H 10/03/18 05:30 Sodium 136 mmol/l (132-148) 10/05/18 06:50 Potassium 5.1 MMOL/L (3.6-5.0) H 10/05/18 06:50 Chloride 97 mmol/L (98-107) L 10/05/18 06:50 Carbon Dioxide 24 mmol/L (22-30) 10/05/18 06:50 Anion Gap 20 (10-20) 10/05/18 06:50 BUN 31 mg/dl (7-17) H 10/05/18 06:50 Creatinine 8.4 mg/dl (0.7-1.2) H* D 10/05/18 06:50 Est GFR ( Amer) 7 10/05/18 06:50 Est GFR (Non-Af Amer) 5 10/05/18 06:50 Random Glucose 78 mg/dL (65-105) 10/05/18 06:50 Lactic Acid 0.6 mmol/L (0.7-2.1) L 10/03/18 05:30 Calcium 8.6 mg/dL (8.4-10.2) 10/05/18 06:50 Phosphorus 6.0 mg/dl (2.5-4.5) H 10/03/18 05:30 Magnesium 2.3 MG/DL (1.6-2.3) 10/03/18 05:30 Total Bilirubin 0.7 mg/dl (0.2-1.3) 10/03/18 05:30 AST 38 U/L (14-36) H 10/03/18 05:30 ALT 50 U/L (9-52) 10/03/18 05:30 Alkaline Phosphatase 90 U/L (38-126) 10/03/18 05:30 Total Protein 7.8 G/DL (6.3-8.2) 10/03/18 05:30 Albumin 3.5 g/dL (3.5-5.0) 10/03/18 05:30 Globulin 4.3 gm/dL (2.2-3.9) H 10/03/18 05:30 Albumin/Globulin Ratio 0.8 (1.0-2.1) L 10/03/18 05:30 Random Tobramycin 1.0 ug/mL 10/04/18 05:40 Random Vancomycin 11.7 ug/mL 10/04/18 05:40 VZV IgG Antibody Negative (POSITIVE) H 10/03/18 11:55 - Hospital Course Hospital Course: 33 y/o female with hx of dilated cardiomyopathy, pulmonary HTN, Chronic Pancytopenia, HIV, HTN, ESRD on HD (MWF), presents with R ear pain associated with yellow drainage and headache. Facial Bone CT: Opacification of right mastoid air cells and middle ear cavity suggestive of Otomastoiditis. Circumferential wall thickening of external ear canal. May represent Otitis Externa MRI: orbit/face/neck: 1. Right otitis externa reiterated without abscess. Right mastoid effusion reiterated with otitis media less well appreciated currently but proven in prior CT 10/02/2018. 2. Left mastoid effusion identified. Left otitis media better seen in prior CT than current MRI. 3. Normal IAC's bilaterally. Right Otitis Externa. - ENT Dr. León: abx and rec bone scan - ID Dr. Rogers: IV Vanco (4wk), Gent (4 wks), Tu (2 wks); renally dosed - PICC line placed - Acyclovir given for empiric treatment. - Wound Care for external ear canal ESRD on HD MWF -HD MWF -Nephrology Dr. Henley HIV - compliant with HAART therapy - Last CD4 215, viral load 100 on 08/29/18 - Follow[facility] Morales in [facility] Cardiomyopathy, dilated, nonischemic, stable -Euvolemic on exam, no jvd, lungs clear, no LE Edema, POSITIVE systolic murmur (chronic) -last echo (03/23), EF 25% Pancytopenia, chronic -Likely 2/2 to HIV -Evaluated by Publications Designer, Dr. Larsen in prior admission- Pancytopenia likely 2/2 to HIV Transaminitits, chronic, mild -Hepatomegaly noted on repeat abdominal CT (07/13) -Likely secondary to Congestive hepatopathy -Hepatitis serology negative HTN -Normotensive -Norvasc and Ibesartan Pt discharged home with instructions on home abx. Pt to f/u with Dr. Morales or Kristin. ER precautions reviewed with patient Blaise Steiner MD PGY2 Discharge Exam - Head Exam Head Exam: ATRAUMATIC, NORMAL INSPECTION - Eye Exam Eye Exam: EOMI - ENT Exam ENT Exam: Mucous Membranes Moist Additional comments: R ear: mild erythema. mild tenderness to palpation at tragus of ear. - Respiratory Exam Respiratory Exam: Clear to PA & Lateral, NORMAL BREATHING PATTERN. absent: Wheezes - Cardiovascular Exam Cardiovascular Exam: REGULAR RHYTHM, +S1, +S2 - GI/Abdominal Exam GI & Abdominal Exam: Normal Bowel Sounds, Soft. absent: Tenderness - Neurological Exam Neurological exam: Alert, CN II-XII Intact, Oriented x3 - Psychiatric Exam Psychiatric exam: Normal Affect, Normal Mood Discharge Plan - Discharge Medications Prescriptions: Ciprofloxacin/Dexamethasone [Ciprodex Otic] 4 drop AD BID #1 bottle Gentamicin 80 mg IV MWF #12 vial MEROPENEM 500 MG in NS [Merrem IV 500 MG/NS 50 ML] 500 mg IV DAILY #14 piggyback Vancomycin/0.9 % Sod Chloride [Vanco 1 Gram/150 ml-0.9% NaCl] 1 gm IV MWF #12 plast..bag - Follow Up Plan Condition: FAIR Disposition: HOME/ ROUTINE Instructions: Outer Ear Infection (DC), End Stage Kidney Disease (DC), Renal Failure Diet (DC) Additional Instructions: hacer nemo con penaloza primario y penaloza nefrologo dentro de 1 semana charles infusion para antibioticos [phone] Referrals: Kapil León MD [Staff Provider] - Christopher Samuel MD [Staff Provider] - Harvinder Foster MD [Staff Provider] - Amilcar Rogers MD [Medical Doctor] -
--- NOTE | 2018-10-05 17:36 | NM ---
Date of service: 10/05/2018 PROCEDURE: Nuclear SPECT bone scan Skull HISTORY: r/o Right Ear OM COMPARISON: [place] bone CT 10/02/2018 and MRI IAC's 10/03/2018. TECHNIQUE: Following administration of 25.0 miCu of Tc MDP multiplanar whole body images were obtained. FINDINGS: Planar images of the skull reveals symmetric activity bilaterally with flow phase imaging appearing unremarkable bilaterally. Activity through the temporal bones appears relatively symmetric on SPECT imaging with mild increase uptake suspected at the bilateral mastoid air cells posteriorly. Dental uptake is noted at the right maxilla alveolar ridge. Other findings: None. IMPRESSION: Mild hyper activity at the bilateral mastoid air cells is symmetric and may reflect mastoiditis or other inflammatory/infectious causes. Further clinical correlation is recommended.
--- NOTE | 2018-10-05 17:59 | RAD ---
Date of service: 10/05/2018 HISTORY: PICC LINE INSERTION VERIFICATION COMPARISON: Frontal chest radiograph 10/02/2018. FINDINGS: LUNGS: Left PICC inserted terminating at the cavoatrial junction. No interval pulmonary disease appreciated bilaterally. PLEURA: No significant pleural effusion identified, no pneumothorax apparent. CARDIOVASCULAR: No aortic atherosclerotic calcification present. Normal cardiac size. No pulmonary vascular congestion. OSSEOUS STRUCTURES: No significant abnormalities. VISUALIZED UPPER ABDOMEN: Normal. OTHER FINDINGS: None. IMPRESSION: No active disease.
[2018-10-06] MEDS: Meropenem 500 MG in Sodium Chloride 0.9% 100 ML IVPB SCH (02:30)
[2018-10-06 06:21] LABS: HEMOGLOBIN 9.4 g/dL (12.0-16.0); MEAN CELL VOLUME 89.1 fl (81.0-99.0); MEAN CORPUSCULAR HEMOGLOBIN 29.9 pg (27.0-31.0); MEAN CORPUSCULAR HGB CONC 33.6 g/dL (33.0-37.0); RBC 3.13 Mil/uL (3.80-5.20); WHITE BLOOD COUNT 2.5 K/uL (4.8-10.8)
[2018-10-06 06:37] LABS: CALCIUM 8.5 mg/dL (8.4-10.2)
[2018-10-06 08:15] VITALS: BP 165/98; PULSE 98; RESP 20; TEMP 97.9; O2SAT 100
[2018-10-06] MEDS: Ciprofloxacin/Dexamethasone OTIC SUSP AD SCH (08:57)
[2018-10-06] MEDS ORDERED: Acyclovir 400 MG in Sodium Chloride 0.9% 100 ML IV SCH (10:00)
[2018-10-07] MEDS ORDERED: Multivitamin Vitamin B Complex (Nephro-Vite) Tab PO SCH (09:00)
== END 2018-10-06 09:40 | disposition home or self-care (01) ==
LOC: H.ER 16:44 → H.ERHOLD 22:49 → H.MEDSURG1 10-03 05:49 → OBSVTOIN 10-05 10:51 → INTOOBSV 10-05 10:51
PROVIDERS: ADMIT Internal Medicine; ATTEND Internal Medicine
DX: H60.20 Malignant otitis externa, unspecified ear (principal); H60.91 Unspecified otitis externa, right ear; H66.93 Otitis media, unspecified, bilateral; H91.91 Unspecified hearing loss, right ear; I13.2 Hypertensive heart and chronic kidney disease with heart failure and with stage 5 chronic kidney disease, or end stage renal disease; I27.20 Pulmonary hypertension, unspecified; I42.0 Dilated cardiomyopathy; I50.9 Heart failure, unspecified; J34.2 Deviated nasal septum; J45.909 Unspecified asthma, uncomplicated; K11.5 Sialolithiasis; K76.1 Chronic passive congestion of liver; H60.11 Cellulitis of right external ear; N18.6 End stage renal disease; N25.81 Secondary hyperparathyroidism of renal origin; Z79.899 Other long term (current) drug therapy; Z87.01 Personal history of pneumonia (recurrent); Z99.2 Dependence on renal dialysis; D64.9 Anemia, unspecified; F32.9 Major depressive disorder, single episode, unspecified; R00.0 Tachycardia, unspecified; R01.1 Cardiac murmur, unspecified; R21 Rash and other nonspecific skin eruption; Z21 Asymptomatic human immunodeficiency virus [HIV] infection status; D61.818 Other pancytopenia; E83.39 Other disorders of phosphorus metabolism
CPT/HCPCS: 36415; 36573; 70480; 70551; 71045; 78315; 80048; 80053; 80200; 80202; 81025; 83605; 83735; 84100; 85025; 85027; 85651; 86787; 87040; 87070; 87181; 90935; 93005; 96365; 96366; 96367; 96375; 99284; A9503; C1751; G0378; J0133; J2185; J2405; J2543; J3260; J7030; Q4081